=== PATIENT | male | born 1970 | race Two or more races ===

== ENCOUNTER → 2016-10-19 | Outpatient (REF) | payer BC ==
[~2016-10-19] MED LIST: AMLO10TA2 PO; CALC1CAP31 PO; CARV6.25 PO; FEBU40TA PO; LOSA100T5 PO; OMEP40CA2 PO; SIMV10TA2 PO; VITA200016 PO
== END ==
LOC: M LAB REF 14:32
PROVIDERS: ATTEND Internal Medicine Nephrology
DX: N18.4 Chronic kidney disease, stage 4 (severe) (principal)

== ENCOUNTER → 2016-11-24 | Outpatient (CLI) | payer BC ==
--- NOTE | 2016-11-24 20:22 | ECGEPIP ---
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
== END ==
LOC: M EKG 10:43
PROVIDERS: ATTEND Anesthesiology
DX: I12.9 Hypertensive chronic kidney disease with stage 1 through stage 4 chronic kidney disease, or unspecified chronic kidney disease (principal); N18.4 Chronic kidney disease, stage 4 (severe); E78.00 Pure hypercholesterolemia, unspecified

== ENCOUNTER 2016-11-26 07:29 | Day surgery (SDC) | payer BC ==
[~2016-11-26] VITALS: Ht 188 cm; Wt 136.1 kg
[2016-11-26] MEDS ORDERED: LR 500 ML IV ONE (08:00)
[2016-11-26] MEDS ORDERED: LIDOCAINE 1% SDV INJ 30 ML VIAL As Ordered ONE (08:34)
[2016-11-26] MEDS ORDERED: HEPARIN SOD (PORCINE) 5000 UNITS/ML VIAL As Ordered ONE (08:34)
[2016-11-26] MEDS ORDERED: BUPIVACAINE HCL 0.5% 30 ML VIAL As Ordered ONE (08:34)
[2016-11-26] MEDS ORDERED: PROPOFOL 200 MG/20 ML VIAL As Ordered ONE ×2 (09:09→09:28)
[2016-11-26] MEDS ORDERED: MIDAZOLAM INJ 2 MG/2 ML VIAL (J2250) As Ordered ONE (09:09)
[2016-11-26] MEDS ORDERED: fentaNYL 100 MCG/2 ML INJECTION (J3010) As Ordered ONE (09:09)
[2016-11-26] MEDS ORDERED: LIDOCAINE 2% INJ 100 MG/5 ML SDV (FOR ANES.) As Ordered ONE (09:09)
--- NOTE | 2016-11-26 10:46 | ROOPDOC ---
[facility] Report Of Operation Report of Operation DATE OF PROCEDURE: 11/26/16 PREOPERATIVE DIAGNOSES: Chronic renal insufficiency nearing end-stage renal disease. POSTOPERATIVE DIAGNOSES: Chronic renal insufficiency nearing end-stage renal disease. PROCEDURE: Left radiocephalic arteriovenous fistula creation. SURGEON: Dr. Latosha Chris MD FIELD LABORATORY OPERATOR: None INDICATION: Patient is a 46-year-old male with chronic renal insufficiency nearing end-stage renal disease who will require hemodialysis in the future. Patient was evaluated and felt to be a good candidate for a left radiocephalic possible left brachiocephalic arteriovenous fistula creation..Risks, benefits and alternative treatment options were discussed with the patient. Benefits included but were not limited to having a functioning arteriovenous fistula to time of initiation of hemodialysis decreasing the possibility of the need for a central venous tunneled catheter for dialysis access. Alternative treatment options included but were not limited to no intervention with continued conservative management. Risks included but were not limited to infection, bleeding, failure of arteriovenous to maintain patency with thrombosis, failure of arteriovenous fistula to mature requiring secondary intervention, steal syndrome, worsening of renal failure requiring hemodialysis sooner than expected, possible need for further open surgical intervention, cerebrovascular accident, myocardial infarction, pulmonary embolus , DVT, anesthetic complication, loss of limb, loss of life and poor outcome. Patient's questions were answered. Patient voices understanding of the risks, benefits and alternative treatment options. Patient consents to proceed with arterial venous fistula formation and accepts the associated risks. ANESTHESIA: Local monitored anesthesia care with 10 mL of 1% lidocaine mixed with half percent Marcaine. IVF: 500 mL ESTIMATED BLOOD LOSS:Approximately 30 mL. HEPARIN:None PROTAMINE:None COMPLICATIONS:None DRAINS:None SPECIMENS:None IMPLANTS:None FINDINGS: Patient had non-diseased radial artery and cephalic vein at the wrist with the cephalic vein measuring approximately 3 mm. DESCRIPTION OF PROCEDURE: Patient was taken to operating room, placed supine on the operating room table, and the patient was prepped and draped in a standard surgical fashion. A time-out was then conducted by myself and the team members in the room confirming the correct patient, procedure and laterality. A tourniquet was then applied to the left forearm to dilate the cephalic vein along the course of the forearm. 2 incisions were then made 1 over the cephalic vein at the wrist and 1 over the radial artery after the overlying tissue were anesthetized with 1% lidocaine mixed with half percent Marcaine. The radial artery were sharply dissected proximally and distally and encircled with a vessel loop. The cephalic vein was sharply dissected proximally and distally encircled with a vessel loop and then transected as far distal as possible with the remnant ligated with a 2-0 silk suture. The cephalic vein was then dilated using heparinized saline. The cephalic vein was brought through a tunnel between the 2 incisions and then anastomosed to the radial artery in an end to side fashion using 6-0 Prolene suture. There was good flow noted in the fistula at the completion of the anastomosis using Doppler ultrasound. Hemostasis was obtained after which the 2 incisions were closed using 3-0 Monocryl in a running subcuticular fashion. Steri-Strips and dressings were applied. Patient tolerated the procedure well. All instrument, sponge and needle counts were correct at the end of the case. Dr. Chris was present for and directed the entire case. Patient was transferred to the recovery room awake, alert and in stable condition. Jarrod Chris MD Nov 26, 2016 10:46
[2016-11-26 11:00] VITALS: BP 136/99
== END 2016-11-26 11:01 | disposition home or self-care (01) ==
LOC: M SDC 07:29
PROVIDERS: ATTEND Surgery Vascular Surgery
DX: N18.9 Chronic kidney disease, unspecified (principal)
CPT/HCPCS: 36821; J2250; J3010

== ENCOUNTER → 2016-12-11 | Outpatient (CLI) | payer OTHER ==
--- NOTE | 2016-12-11 09:35 | REP ---
CT ABDOMEN/PELVIS WITHOUT IV CONTRAST: CT abdomen/pelvis performed without oral or IV contrast. Sagittal and coronal reconstruction images are performed. Comparison made with prior study of 12/27/2015. In the visualized lung bases, there is focal pleural thickening or consolidative opacity in the posterior costophrenic sulcus on the left. This has increased since prior study. The liver, spleen, adrenals, and pancreas are grossly unremarkable. Kidneys are both enlarged and demonstrate multiple innumerable diffuse cystic lesions throughout compatible with polycystic kidney disease. Some of these cystic lesions are hyperdense. A few tiny calcifications are seen bilaterally in the kidneys. There is no abdominal aortic aneurysm. There is no adenopathy. There is no free air or free fluid. There is no bowel wall thickening. There is mild sigmoid diverticulosis without acute diverticulitis. Urinary bladder is not well distended and not well evaluated. No pelvic mass is seen. There are mild degenerative changes of the spine. IMPRESSION: Focal pleural thickening or consolidation in the left posterior costophrenic sulcus. This has increased since prior study. Recommend a CT of the chest to evaluate for other parenchymal abnormalities. Polycystic kidney disease as discussed above. Signed by Salbador Wallace MD 12/14/2016 09:45 A
== END ==
LOC: M RAD 07:23
PROVIDERS: ATTEND Transplant Surgery
DX: Z01.818 Encounter for other preprocedural examination (principal)

== ENCOUNTER → 2017-01-27 | Outpatient (REF) | payer BC | LOC: M LAB REF 13:53 | PROVIDERS: ATTEND Internal Medicine Nephrology | DX: N18.5 Chronic kidney disease, stage 5 (principal) ==

== ENCOUNTER → 2017-04-05 | Outpatient (REF) | payer BC ==
[2017-04-07 10:56] LABS: HEPATITIS B SURFACE ANTIGEN NEGATIVE (NEGATIVE)
[2017-04-07 11:01] LABS: HEPATITIS C VIRUS ABY INDEX 0.1 INDEX (<0.8)
[2017-04-07 11:02] LABS: HEPATITIS B CORE ANTIBODY IGM NEGATIVE (NEGATIVE)
[2017-04-07 11:11] LABS: HEPATITIS B SURFACE ANTIBODY NEGATIVE (POSITIVE)
== END ==
LOC: M LAB REF 18:43
DX: N18.6 End stage renal disease (principal)
CPT/HCPCS: 86706

== ENCOUNTER → 2017-06-04 | Outpatient (REF) | payer BC ==
[2017-06-04 14:02] LABS: CHOLESTEROL LEVEL 186 MG/DL (<200); CHOLESTEROL RISK RATIO 6.642 (<5); HDL CHOLESTEROL 28 MG/DL (>40); LDL CHOLESTEROL 92.2 MG/DL (<100); NON-HDL-C 158 MG/DL; TRIGLYCERIDES LEVEL 329 MG/DL (<150)
[2017-06-04 14:15] LABS: HEPATITIS B SURFACE ANTIBODY NEGATIVE (POSITIVE)
[2017-06-04 14:22] LABS: HEPATITIS B SURFACE ANTIGEN NEGATIVE (NEGATIVE)
[2017-06-04 14:48] LABS: HEPATITIS B CORE ANTIBODY IGM NEGATIVE (NEGATIVE); HEPATITIS C VIRUS ABY INDEX < 0.0 INDEX (<0.8)
== END ==
LOC: M LAB REF 13:18
DX: N18.5 Chronic kidney disease, stage 5 (principal)
CPT/HCPCS: 86706

== ENCOUNTER 2017-06-25 09:31 | Day surgery (SDC) | payer BC ==
[2017-06-25] MEDS ORDERED: LIDOCAINE 1% MDV 20ML VIAL SQ (09:45)
[2017-06-25] MEDS ORDERED: LR 1,000 ML IV (09:45)
[2017-06-25 10:07] LABS: POTASSIUM SERUM 4.6 MEQ/L (3.5-5.1)
[2017-06-25] MEDS ORDERED: ROCURONIUM BROMIDE 50 MG/5 ML VIAL As Ordered (10:07)
[2017-06-25] MEDS ORDERED: PROPOFOL 200 MG/20 ML VIAL As Ordered (10:07)
[2017-06-25] MEDS ORDERED: LIDOCAINE 2% W/EPIN INJ 20ML **PRES FREE As Ordered (10:07)
[2017-06-25] MEDS ORDERED: MIDAZOLAM INJ 2 MG/2 ML VIAL (J2250) As Ordered (10:07)
[2017-06-25] MEDS ORDERED: fentaNYL 100 MCG/2 ML INJECTION (J3010) As Ordered ×2 (10:07→11:24)
[2017-06-25] MEDS ORDERED: dexameTHASONE 4 MG/ML 1ML VIAL (J1100) As Ordered (10:53)
[2017-06-25] MEDS ORDERED: ONDANSETRON 4MG/2ML VIAL (J2405) As Ordered (10:53)
[2017-06-25] MEDS ORDERED: NEOSTIGMINE 10 MG/10 ML VIAL (J2710) As Ordered (11:06)
[2017-06-25] MEDS ORDERED: GLYCOPYRROLATE INJ 0.2 MG/ML 2 ML VIAL As Ordered (11:06)
[2017-06-25] MEDS: LIDOCAINE 1% SDV INJ 30 ML VIAL As Ordered (11:16)
[2017-06-25] MEDS: BUPIVACAINE HCL 0.5% 30 ML VIAL As Ordered (11:16)
[2017-06-25] MEDS ORDERED: LABETALOL HCL 100 MG/20 ML VIAL As Ordered (11:18)
[2017-06-25] MEDS ORDERED: ONDANSETRON 4MG/2ML VIAL (J2405) IV (12:00)
[2017-06-25] MEDS ORDERED: NS 1,000 ML IV (12:00)
[2017-06-25] MEDS ORDERED: METOCLOPRAMIDE INJ 10MG/2ML VIAL (J2765) IV (12:00)
[2017-06-25] MEDS ORDERED: fentaNYL 100 MCG/2 ML INJECTION (J3010) IV (12:00)
[2017-06-25] MEDS: PERCOCET 5MG/325MG TAB PO (12:16)
== END 2017-06-25 14:28 | disposition home or self-care (01) ==
LOC: M SDC 09:31
DX: N18.9 Chronic kidney disease, unspecified (principal); Q61.3 Polycystic kidney, unspecified; K66.0 Peritoneal adhesions (postprocedural) (postinfection); Z98.890 Other specified postprocedural states; I12.9 Hypertensive chronic kidney disease with stage 1 through stage 4 chronic kidney disease, or unspecified chronic kidney disease; E78.5 Hyperlipidemia, unspecified; M10.9 Gout, unspecified; Z79.899 Other long term (current) drug therapy
CPT/HCPCS: 49324

== ENCOUNTER 2017-06-26 09:00 | Inpatient (IN) | payer BC ==
[2017-06-26 10:14] LABS: BASO % 0.1 % (0.0-1.0); HEMATOCRIT 32.6 % (42.0-52.0); HEMOGLOBIN 10.7 g/dl (13.5-17.5); IMMATURE GRANULOCYTE % 0.6 % (0-3.0); LYMPH # 0.8 10^3/uL (1.5-4.5); LYMPH % 4.6 % (24.0-44.0); MEAN CORPUSCULAR HEMOGLOBIN 27.6 pg (27.0-33.0); MEAN CORPUSCULAR HGB CONC 32.8 g/dl (32.0-36.5); MONO # 1.1 10^3/uL (0.0-0.8); MONO % 6.1 % (0.0-5.0); NEUTROPHILS # 15.5 10^3/uL (1.8-7.7); NEUTROPHILS % 88.6 % (36.0-66.0); PLATELET COUNT, AUTOMATED 249 10^3/uL (150-450); RED BLOOD COUNT 3.88 10^6/uL (4.30-6.10); RED CELL DISTRIBUTION WIDTH 12.7 % (11.5-14.5); WHITE BLOOD COUNT 17.5 10^3/uL (4.0-10.0)
[2017-06-26 10:42] LABS: ALBUMIN 3.7 GM/DL (3.2-5.2); ALBUMIN/GLOBULIN RATIO 1.09 (1.00-1.93); ALKALINE PHOSPHATASE 42 U/L (45-117); ALT/SGPT 18 U/L (12-78); ANION GAP 10 MEQ/L (8-16); AST/SGOT 6 U/L (7-37); BILIRUBIN,TOTAL 0.2 MG/DL (0.2-1.0); BLOOD UREA NITROGEN 59 MG/DL (7-18); CALCIUM LEVEL 8.7 MG/DL (8.5-10.1); CARBON DIOXIDE LEVEL 21 MEQ/L (21-32); CHLORIDE LEVEL 109 MEQ/L (98-107); CREATININE FOR GFR 5.03 MG/DL (0.70-1.30); GLOMERULAR FILTRATION RATE 13.3 (>60); GLUCOSE, FASTING 127 MG/DL (70-100); POTASSIUM SERUM 4.5 MEQ/L (3.5-5.1); SODIUM LEVEL 140 MEQ/L (136-145); TOTAL PROTEIN 7.1 GM/DL (6.4-8.2)
[2017-06-26 10:52] LABS: KETONE, URINE AUTO RFX NEGATIVE (NEGATIVE); LEUKOCYTE ESTERASE UR AUTO RFX NEGATIVE (NEGATIVE); MUCUS, URINE RFX SMALL (NEGATIVE); NITRITE, URINE AUTO RFX NEGATIVE (NEGATIVE); RBC, URINE AUTO RFX 1 /HPF (0-3); SQUAM EPITHELIAL CELL UR AURFX 0 /HPF (0-6); WBC, URINE AUTO RFX 0 /HPF (0-3)
[2017-06-26] MEDS: VANCOMYCIN HCL 1,000 MG, VIAL MATE ADAPTER 1 EACH in D5W 250 ML IV (12:04)
[2017-06-26] MEDS: PIPERACILLIN/TAZOBACTAM SOD 2.25 GM in D5W MINI-BAG PLUS 50 ML IV (13:02)
[2017-06-26] MEDS ORDERED: ONDANSETRON 4MG/2ML VIAL (J2405) IV (14:15)
[2017-06-26] MEDS ORDERED: ACETAMINOPHEN TAB 650MG DOSE (2X325MG) PO (14:15)
[2017-06-26] MEDS: CEFEPIME HCL 1 GM in D5W MINI-BAG PLUS 50 ML IV (17:50)
[2017-06-26 18:23] LABS: HEMATOCRIT 28.1 % (42.0-52.0); HEMOGLOBIN 9.1 g/dl (13.5-17.5)
[2017-06-26] MEDS: CARVedilol 6.25 MG TAB PO (20:59)
[2017-06-26] MEDS: TAMSULOSIN 0.4 MG CAP PO (20:59)
[2017-06-26] MEDS: SENOKOT S TAB PO (20:59)
[2017-06-26] MEDS: SIMVASTATIN 10 MG TAB PO (20:59)
[2017-06-27 06:08] LABS: HEMATOCRIT 27.9 % (42.0-52.0); HEMOGLOBIN 9.3 g/dl (13.5-17.5); MEAN CORPUSCULAR HGB CONC 33.3 g/dl (32.0-36.5); PLATELET COUNT, AUTOMATED 196 10^3/uL (150-450); RED BLOOD COUNT 3.32 10^6/uL (4.30-6.10); RED CELL DISTRIBUTION WIDTH 13.1 % (11.5-14.5)
[2017-06-27 06:24] LABS: ALBUMIN 3.2 GM/DL (3.2-5.2); ANION GAP 9 MEQ/L (8-16); BLOOD UREA NITROGEN 61 MG/DL (7-18); CALCIUM LEVEL 8.5 MG/DL (8.5-10.1); CARBON DIOXIDE LEVEL 19 MEQ/L (21-32); CHLORIDE LEVEL 111 MEQ/L (98-107); CREATININE FOR GFR 4.74 MG/DL (0.70-1.30); GLOMERULAR FILTRATION RATE 14.2 (>60); GLUCOSE, FASTING 92 MG/DL (70-100); MAGNESIUM LEVEL 1.9 MG/DL (1.8-2.4); PHOSPHORUS LEVEL 4.4 MG/DL (2.5-4.9); POTASSIUM SERUM 4.1 MEQ/L (3.5-5.1); SODIUM LEVEL 139 MEQ/L (136-145); VANCOMYCIN RANDOM 8.9 UG/ML
[2017-06-27] MEDS: FUROSEMIDE 40 MG TAB PO (08:40)
[2017-06-27] MEDS: CALCITRIOL 0.25 MCG CAP (S0169) PO (08:40)
[2017-06-27] MEDS: OMEPRAZOLE 20 MG CAP PO (08:40)
[2017-06-27] MEDS: VITAMIN D 1,000 INTERNATIONAL UNITS TABLET PO (08:41)
[2017-06-27] MEDS: amLODIPine 10 MG TAB PO (08:41)
[2017-06-27] MEDS: CARVedilol 6.25 MG TAB PO ×2 (08:41→21:33)
[2017-06-27] MEDS: SENOKOT S TAB PO ×2 (08:41→21:32)
[2017-06-27] MEDS: LOSARTAN 50 MG TAB PO (08:42)
[2017-06-27] MEDS ORDERED: LOSARTAN 50 MG TAB PO (09:00)
[2017-06-27] MEDS: VANCOMYCIN HCL 1,000 MG, VIAL MATE ADAPTER 1 EACH in D5W 250 ML IV (10:20)
[2017-06-27] MEDS: FEBUXOSTAT 40 MG TABLET (ULORIC) PO (12:17)
[2017-06-27] MEDS: SODIUM BICARBONATE 325 MG TAB PO ×2 (12:17→21:32)
[2017-06-27 12:41] LABS: FERRITIN 154 NG/ML (26-388); IRON (FE) 56 UG/DL (65-175); TOTAL IRON BINDING CAPACITY 243 UG/DL (250-450)
[2017-06-27] MEDS: CEFEPIME HCL 1 GM in D5W MINI-BAG PLUS 50 ML IV (16:54)
[2017-06-27] MEDS: DARBEPOETIN 40 MCG/0.4 ML *NON-DIALYSIS* SYRINGE (J0881) SQ (16:54)
[2017-06-27] MEDS: SIMVASTATIN 10 MG TAB PO (21:32)
[2017-06-27] MEDS: TAMSULOSIN 0.4 MG CAP PO (21:32)
[2017-06-28 05:53] LABS: HEMATOCRIT 30.4 % (42.0-52.0); HEMOGLOBIN 9.9 g/dl (13.5-17.5); MEAN CORPUSCULAR HEMOGLOBIN 27.3 pg (27.0-33.0); MEAN CORPUSCULAR HGB CONC 32.6 g/dl (32.0-36.5); PLATELET COUNT, AUTOMATED 198 10^3/uL (150-450); RED BLOOD COUNT 3.62 10^6/uL (4.30-6.10); RED CELL DISTRIBUTION WIDTH 13.1 % (11.5-14.5); WHITE BLOOD COUNT 8.4 10^3/uL (4.0-10.0)
[2017-06-28 06:09] LABS: ESTIMATED AVERAGE GLUCOSE 114 MG/DL (60-110); HEMOGLOBIN A1c 5.6 %
[2017-06-28 06:54] LABS: ALBUMIN 3.4 GM/DL (3.2-5.2); ANION GAP 11 MEQ/L (8-16); BLOOD UREA NITROGEN 60 MG/DL (7-18); CALCIUM LEVEL 8.7 MG/DL (8.5-10.1); CARBON DIOXIDE LEVEL 19 MEQ/L (21-32); CHLORIDE LEVEL 111 MEQ/L (98-107); CHOLESTEROL LEVEL 153 MG/DL (<200); CHOLESTEROL RISK RATIO 4.636 (<5); CREATININE FOR GFR 4.92 MG/DL (0.70-1.30); GLOMERULAR FILTRATION RATE 13.6 (>60); GLUCOSE, FASTING 106 MG/DL (70-100); HDL CHOLESTEROL 33 MG/DL (>40); LDL CHOLESTEROL 76.6 MG/DL (<100); MAGNESIUM LEVEL 1.9 MG/DL (1.8-2.4); NON-HDL-C 120 MG/DL; SODIUM LEVEL 141 MEQ/L (136-145); TRIGLYCERIDES LEVEL 217 MG/DL (<150); VANCOMYCIN RANDOM 14.3 UG/ML
[2017-06-28] MEDS: SENOKOT S TAB PO (09:16)
[2017-06-28] MEDS: OMEPRAZOLE 20 MG CAP PO (09:16)
[2017-06-28] MEDS: FEBUXOSTAT 40 MG TABLET (ULORIC) PO (09:16)
[2017-06-28] MEDS: CALCITRIOL 0.25 MCG CAP (S0169) PO (09:16)
[2017-06-28] MEDS: VITAMIN D 1,000 INTERNATIONAL UNITS TABLET PO (09:17)
[2017-06-28] MEDS: CARVedilol 6.25 MG TAB PO (09:17)
[2017-06-28] MEDS: SODIUM BICARBONATE 325 MG TAB PO (09:17)
[2017-06-28] MEDS: amLODIPine 10 MG TAB PO (09:17)
[2017-06-28] MEDS: FUROSEMIDE 40 MG TAB PO (09:17)
[2017-06-28] MEDS: LOSARTAN 50 MG TAB PO (09:17)
[2017-06-28] MEDS: VANCOMYCIN HCL 1,000 MG, VIAL MATE ADAPTER 1 EACH in D5W 250 ML IV (10:32)
[2017-06-28 10:35] LABS: HEPATITIS B SURFACE ANTIBODY NEGATIVE (POSITIVE)
[2017-06-28 10:36] LABS: HEPATITIS B SURFACE ANTIGEN NEGATIVE (NEGATIVE)
[2017-06-28 11:03] LABS: HEPATITIS B CORE ANTIBODY IGM NEGATIVE (NEGATIVE)
[2017-06-29 08:11] LABS: HEPATITIS B CORE ANTIBODY IGG Negative (Negative)
== END 2017-06-28 11:40 | disposition home or self-care (01) | DRG 862 ==
LOC: M ED 09:00 → M ED INP 14:12 → M MSPAV 15:22
DX: T85.838A Hemorrhage due to other internal prosthetic devices, implants and grafts, initial encounter (principal); K66.1 Hemoperitoneum; I12.0 Hypertensive chronic kidney disease with stage 5 chronic kidney disease or end stage renal disease; Q61.3 Polycystic kidney, unspecified; N18.5 Chronic kidney disease, stage 5; T82.868A Thrombosis due to vascular prosthetic devices, implants and grafts, initial encounter; E66.01 Morbid (severe) obesity due to excess calories; N25.81 Secondary hyperparathyroidism of renal origin; Z68.41 Body mass index [BMI] 40.0-44.9, adult; R33.9 Retention of urine, unspecified; E78.5 Hyperlipidemia, unspecified; M1A.30X0 Chronic gout due to renal impairment, unspecified site, without tophus (tophi); Z95.828 Presence of other vascular implants and grafts; Z79.899 Other long term (current) drug therapy; Y82.9 Unspecified medical devices associated with adverse incidents

== ENCOUNTER 2017-07-05 06:26 | Inpatient (IN) | payer BC ==
[2017-07-05] MEDS ORDERED: fentaNYL 100 MCG/2 ML INJECTION (J3010) As Ordered (06:42)
[2017-07-05] MEDS ORDERED: ISOVUE-300 61% 50ML VIAL (Q9967) As Ordered (06:43)
[2017-07-05] MEDS ORDERED: MIDAZOLAM INJ 2 MG/2 ML VIAL (J2250) As Ordered (06:43)
[2017-07-05 14:39] LABS: BASO % 0.4 % (0.0-1.0); EOS # 0.3 10^3/uL (0.0-0.50); HEMATOCRIT 31.7 % (42.0-52.0); HEMOGLOBIN 10.4 g/dl (13.5-17.5); IMMATURE GRANULOCYTE % 1.1 % (0-3.0); LYMPH # 1.2 10^3/uL (1.5-4.5); LYMPH % 12.2 % (24.0-44.0); MEAN CORPUSCULAR HEMOGLOBIN 28.1 pg (27.0-33.0); MEAN CORPUSCULAR HGB CONC 32.8 g/dl (32.0-36.5); MEAN CORPUSCULAR VOLUME 85.7 fl (80.0-96.0); MONO % 9.3 % (0.0-5.0); NEUTROPHILS # 7.5 10^3/uL (1.8-7.7); PLATELET COUNT, AUTOMATED 265 10^3/uL (150-450); RED CELL DISTRIBUTION WIDTH 13.2 % (11.5-14.5); WHITE BLOOD COUNT 10.2 10^3/uL (4.0-10.0)
[2017-07-05 15:03] LABS: ALBUMIN 3.5 GM/DL (3.2-5.2); ALBUMIN/GLOBULIN RATIO 1.17 (1.00-1.93); ALKALINE PHOSPHATASE 52 U/L (45-117); ALT/SGPT 24 U/L (12-78); ANION GAP 10 MEQ/L (8-16); AST/SGOT 15 U/L (7-37); BILIRUBIN,TOTAL 0.5 MG/DL (0.2-1.0); BLOOD UREA NITROGEN 65 MG/DL (7-18); CALCIUM LEVEL 8.4 MG/DL (8.5-10.1); CARBON DIOXIDE LEVEL 20 MEQ/L (21-32); CHLORIDE LEVEL 112 MEQ/L (98-107); CREATININE FOR GFR 4.86 MG/DL (0.70-1.30); GLOMERULAR FILTRATION RATE 13.8 (>60); GLUCOSE, FASTING 106 MG/DL (70-100); POTASSIUM SERUM 4.2 MEQ/L (3.5-5.1); SODIUM LEVEL 142 MEQ/L (136-145); TOTAL PROTEIN 6.5 GM/DL (6.4-8.2)
[2017-07-05 16:03] LABS: INR 1.04; PROTHROMBIN TIME 13.8 SECONDS (12.4-14.5)
[2017-07-05 16:04] LABS: PARTIAL THROMBOPLASTIN TIME 25.4 SECONDS (26.8-37.9)
[2017-07-05] MEDS: HEPARIN SOD (PORCINE) 5000 UNITS/ML VIAL IV ×2 (16:25→23:14)
[2017-07-05] MEDS: HEPARIN DRIP 25,000 UNITS in APPROPRIATE DILUENT 1 EA IV (16:26)
[2017-07-05 19:33] LABS: PARTIAL THROMBOPLASTIN TIME 58.1 SECONDS (26.8-37.9)
[2017-07-05] MEDS: CARVedilol 3.125 MG TAB PO (22:14)
[2017-07-05] MEDS: SIMVASTATIN 10 MG TAB PO (22:14)
[2017-07-05 22:43] LABS: INR 1.01; PROTHROMBIN TIME 13.4 SECONDS (12.4-14.5)
[2017-07-05 22:44] LABS: PARTIAL THROMBOPLASTIN TIME 44.5 SECONDS (26.8-37.9)
[2017-07-06 06:18] LABS: PARTIAL THROMBOPLASTIN TIME 105.9 SECONDS (26.8-37.9)
[2017-07-06] MEDS: HEPARIN DRIP 25,000 UNITS in APPROPRIATE DILUENT 1 EA IV ×2 (06:40→21:03)
[2017-07-06] MEDS: FEBUXOSTAT 40 MG TABLET (ULORIC) PO (08:49)
[2017-07-06] MEDS: CALCITRIOL 0.25 MCG CAP (S0169) PO (08:49)
[2017-07-06] MEDS: OMEPRAZOLE 20 MG CAP PO (08:49)
[2017-07-06] MEDS: CARVedilol 3.125 MG TAB PO ×2 (08:50→20:10)
[2017-07-06 13:14] LABS: PARTIAL THROMBOPLASTIN TIME 58.6 SECONDS (26.8-37.9)
[2017-07-06] MEDS: HEPARIN SOD (PORCINE) 5000 UNITS/ML VIAL IV (14:37)
[2017-07-06] MEDS: ALTEPLASE RECOMBINANT 25 MG in NS 225 ML IV (17:02)
[2017-07-06] MEDS: SODIUM CHLORIDE 0.9% INJ 10 ML SYR IV (18:00)
[2017-07-06] MEDS: SIMVASTATIN 10 MG TAB PO (20:09)
[2017-07-06 23:41] LABS: HEMATOCRIT 28.9 % (42.0-52.0); HEMOGLOBIN 9.5 g/dl (13.5-17.5)
[2017-07-06 23:52] LABS: FIBRINOGEN 576 MG/DL (221-452); INR 1.02; PROTHROMBIN TIME 13.5 SECONDS (12.4-14.5)
[2017-07-07 00:15] LABS: PARTIAL THROMBOPLASTIN TIME 86.4 SECONDS (26.8-37.9)
[2017-07-07] MEDS: SODIUM CHLORIDE 0.9% INJ 10 ML SYR IV ×2 (05:53→18:13)
[2017-07-07 06:12] LABS: HEMATOCRIT 29.5 % (42.0-52.0); MEAN CORPUSCULAR HEMOGLOBIN 28.4 pg (27.0-33.0); MEAN CORPUSCULAR HGB CONC 33.9 g/dl (32.0-36.5); MEAN CORPUSCULAR VOLUME 83.8 fl (80.0-96.0); PLATELET COUNT, AUTOMATED 317 10^3/uL (150-450); RED BLOOD COUNT 3.52 10^6/uL (4.30-6.10); RED CELL DISTRIBUTION WIDTH 12.9 % (11.5-14.5); WHITE BLOOD COUNT 9.5 10^3/uL (4.0-10.0)
[2017-07-07 06:25] LABS: PROTHROMBIN TIME 13.3 SECONDS (12.4-14.5)
[2017-07-07 06:26] LABS: FIBRINOGEN 582 MG/DL (221-452); PARTIAL THROMBOPLASTIN TIME 43.7 SECONDS (26.8-37.9)
[2017-07-07] MEDS: HEPARIN DRIP 25,000 UNITS in APPROPRIATE DILUENT 1 EA IV ×2 (06:31→18:13)
[2017-07-07 06:47] LABS: ALBUMIN 3.3 GM/DL (3.2-5.2); ANION GAP 11 MEQ/L (8-16); BLOOD UREA NITROGEN 64 MG/DL (7-18); CALCIUM LEVEL 8.5 MG/DL (8.5-10.1); CARBON DIOXIDE LEVEL 18 MEQ/L (21-32); CHLORIDE LEVEL 112 MEQ/L (98-107); CREATININE FOR GFR 4.71 MG/DL (0.70-1.30); GLOMERULAR FILTRATION RATE 14.3 (>60); GLUCOSE, FASTING 101 MG/DL (70-100); POTASSIUM SERUM 4.5 MEQ/L (3.5-5.1); SODIUM LEVEL 141 MEQ/L (136-145)
[2017-07-07] MEDS: OMEPRAZOLE 20 MG CAP PO (09:00)
[2017-07-07] MEDS: CALCITRIOL 0.25 MCG CAP (S0169) PO (09:00)
[2017-07-07] MEDS: FEBUXOSTAT 40 MG TABLET (ULORIC) PO (09:00)
[2017-07-07] MEDS: CARVedilol 3.125 MG TAB PO ×2 (09:10→20:17)
[2017-07-07 12:21] LABS: HEMATOCRIT 30.6 % (42.0-52.0); HEMOGLOBIN 9.9 g/dl (13.5-17.5)
[2017-07-07] MEDS: VANCOMYCIN HCL 1,000 MG, VIAL MATE ADAPTER 1 EACH in D5W 250 ML IV (12:22)
[2017-07-07 12:33] LABS: INR 0.96; PROTHROMBIN TIME 12.9 SECONDS (12.4-14.5)
[2017-07-07 12:34] LABS: FIBRINOGEN 576 MG/DL (221-452)
[2017-07-07 12:35] LABS: PARTIAL THROMBOPLASTIN TIME 57.5 SECONDS (26.8-37.9)
[2017-07-07] MEDS: ALTEPLASE RECOMBINANT 25 MG in NS 225 ML IV (15:42)
[2017-07-07 18:35] LABS: HEMATOCRIT 29.3 % (42.0-52.0); HEMOGLOBIN 9.7 g/dl (13.5-17.5)
[2017-07-07 18:44] LABS: FIBRINOGEN 576 MG/DL (221-452); INR 1.02; PROTHROMBIN TIME 13.5 SECONDS (12.4-14.5)
[2017-07-07 18:45] LABS: PARTIAL THROMBOPLASTIN TIME 53.1 SECONDS (26.8-37.9)
[2017-07-07] MEDS: SIMVASTATIN 10 MG TAB PO (20:16)
[2017-07-07 23:40] LABS: HEMATOCRIT 28.9 % (42.0-52.0); HEMOGLOBIN 9.5 g/dl (13.5-17.5)
[2017-07-07 23:51] LABS: PARTIAL THROMBOPLASTIN TIME 53.6 SECONDS (26.8-37.9)
[2017-07-07 23:51] LABS: FIBRINOGEN 527 MG/DL (221-452)
[2017-07-08] MEDS: SODIUM CHLORIDE 0.9% INJ 10 ML SYR IV ×2 (05:43→18:00)
[2017-07-08] MEDS: HEPARIN DRIP 25,000 UNITS in APPROPRIATE DILUENT 1 EA IV ×2 (05:43→18:18)
[2017-07-08 05:45] LABS: HEMATOCRIT 29.6 % (42.0-52.0); HEMOGLOBIN 9.7 g/dl (13.5-17.5)
[2017-07-08 06:00] LABS: PARTIAL THROMBOPLASTIN TIME 54.3 SECONDS (26.8-37.9)
[2017-07-08 06:00] LABS: FIBRINOGEN 569 MG/DL (221-452)
[2017-07-08 06:25] LABS: ANION GAP 8 MEQ/L (8-16); BLOOD UREA NITROGEN 58 MG/DL (7-18); CALCIUM LEVEL 8.4 MG/DL (8.5-10.1); CARBON DIOXIDE LEVEL 21 MEQ/L (21-32); CHLORIDE LEVEL 114 MEQ/L (98-107); CREATININE FOR GFR 4.59 MG/DL (0.70-1.30); GLOMERULAR FILTRATION RATE 14.8 (>60); GLUCOSE, FASTING 107 MG/DL (70-100); POTASSIUM SERUM 4.6 MEQ/L (3.5-5.1); SODIUM LEVEL 143 MEQ/L (136-145)
[2017-07-08] MEDS: FEBUXOSTAT 40 MG TABLET (ULORIC) PO (08:47)
[2017-07-08] MEDS: CALCITRIOL 0.25 MCG CAP (S0169) PO (08:47)
[2017-07-08] MEDS: CARVedilol 3.125 MG TAB PO (08:47)
[2017-07-08] MEDS: OMEPRAZOLE 20 MG CAP PO (08:47)
[2017-07-08 12:04] LABS: HEMATOCRIT 29.9 % (42.0-52.0); HEMOGLOBIN 9.9 g/dl (13.5-17.5)
[2017-07-08 12:16] LABS: FIBRINOGEN 550 MG/DL (221-452); INR 0.96; PROTHROMBIN TIME 12.9 SECONDS (12.4-14.5)
[2017-07-08 12:17] LABS: PARTIAL THROMBOPLASTIN TIME 66.7 SECONDS (26.8-37.9)
[2017-07-08] MEDS: amLODIPine 5 MG TAB PO (12:55)
[2017-07-08] MEDS: ALTEPLASE RECOMBINANT 25 MG in NS 225 ML IV (14:38)
[2017-07-08 18:20] LABS: HEMATOCRIT 26.8 % (42.0-52.0); HEMOGLOBIN 8.7 g/dl (13.5-17.5); HEMOGLOBIN 8.8 g/dl (13.5-17.5); MEAN CORPUSCULAR HGB CONC 32.8 g/dl (32.0-36.5); MEAN CORPUSCULAR VOLUME 85.4 fl (80.0-96.0); PLATELET COUNT, AUTOMATED 300 10^3/uL (150-450); RED BLOOD COUNT 3.14 10^6/uL (4.30-6.10); RED CELL DISTRIBUTION WIDTH 12.9 % (11.5-14.5); WHITE BLOOD COUNT 16.2 10^3/uL (4.0-10.0)
[2017-07-08 18:24] LABS: PARTIAL THROMBOPLASTIN TIME 38.8 SECONDS (26.8-37.9)
[2017-07-08 18:24] LABS: FIBRINOGEN 550 MG/DL (221-452)
[2017-07-08] MEDS: ACETAMINOPHEN TAB 650MG DOSE (2X325MG) PO (21:00)
[2017-07-08] MEDS ORDERED: PILL CRUSHER/CUTTER 1 EACH XX (21:00)
[2017-07-08] MEDS: SIMETHICONE 80 MG CHEW TAB PO (21:00)
[2017-07-08] MEDS: CARVedilol 6.25 MG TAB PO (21:01)
[2017-07-08] MEDS: SIMVASTATIN 10 MG TAB PO (21:01)
[2017-07-08 23:47] LABS: HEMATOCRIT 25.5 % (42.0-52.0); HEMOGLOBIN 8.3 g/dl (13.5-17.5)
[2017-07-09 00:05] LABS: PARTIAL THROMBOPLASTIN TIME 48.5 SECONDS (26.8-37.9)
[2017-07-09 00:05] LABS: FIBRINOGEN 538 MG/DL (221-452)
[2017-07-09] MEDS: ACETAMINOPHEN TAB 650MG DOSE (2X325MG) PO (04:01)
[2017-07-09] MEDS: SODIUM CHLORIDE 0.9% INJ 10 ML SYR IV ×2 (05:55→17:58)
[2017-07-09 06:06] LABS: HEMATOCRIT 22.6 % (42.0-52.0); HEMOGLOBIN 7.5 g/dl (13.5-17.5); MEAN CORPUSCULAR HEMOGLOBIN 28.2 pg (27.0-33.0); MEAN CORPUSCULAR HGB CONC 33.2 g/dl (32.0-36.5); PLATELET COUNT, AUTOMATED 245 10^3/uL (150-450); RED BLOOD COUNT 2.66 10^6/uL (4.30-6.10); WHITE BLOOD COUNT 13.3 10^3/uL (4.0-10.0)
[2017-07-09 06:07] LABS: HEMATOCRIT 22.7 % (42.0-52.0); HEMOGLOBIN 7.3 g/dl (13.5-17.5)
[2017-07-09 06:17] LABS: FIBRINOGEN 459 MG/DL (221-452)
[2017-07-09 06:17] LABS: PARTIAL THROMBOPLASTIN TIME 54.5 SECONDS (26.8-37.9)
[2017-07-09 06:36] LABS: ANION GAP 10 MEQ/L (8-16); BLOOD UREA NITROGEN 63 MG/DL (7-18); CALCIUM LEVEL 8.3 MG/DL (8.5-10.1); CARBON DIOXIDE LEVEL 19 MEQ/L (21-32); CHLORIDE LEVEL 111 MEQ/L (98-107); CREATININE FOR GFR 5.31 MG/DL (0.70-1.30); GLOMERULAR FILTRATION RATE 12.5 (>60); GLUCOSE, FASTING 106 MG/DL (70-100); POTASSIUM SERUM 4.4 MEQ/L (3.5-5.1); SODIUM LEVEL 140 MEQ/L (136-145)
[2017-07-09] MEDS: HEPARIN DRIP 25,000 UNITS in APPROPRIATE DILUENT 1 EA IV ×2 (07:41→18:00)
[2017-07-09] MEDS: CARVedilol 6.25 MG TAB PO ×2 (08:20→21:00)
[2017-07-09] MEDS: OMEPRAZOLE 20 MG CAP PO (08:20)
[2017-07-09] MEDS: FEBUXOSTAT 40 MG TABLET (ULORIC) PO (08:20)
[2017-07-09] MEDS: CALCITRIOL 0.25 MCG CAP (S0169) PO (08:21)
[2017-07-09] MEDS: amLODIPine 5 MG TAB PO (08:21)
[2017-07-09] MEDS ORDERED: MIDAZOLAM INJ 2 MG/2 ML VIAL (J2250) As Ordered (11:34)
[2017-07-09] MEDS ORDERED: ISOVUE-300 61% 50ML VIAL (Q9967) As Ordered (11:34)
[2017-07-09] MEDS ORDERED: fentaNYL 100 MCG/2 ML INJECTION (J3010) As Ordered (11:34)
[2017-07-09 13:13] LABS: HEMOGLOBIN 7.3 g/dl (13.5-17.5)
[2017-07-09 13:24] LABS: FIBRINOGEN 481 MG/DL (221-452)
[2017-07-09 13:41] LABS: PARTIAL THROMBOPLASTIN TIME 172.6 SECONDS (26.8-37.9)
[2017-07-09 14:25] LABS: PARTIAL THROMBOPLASTIN TIME 52.4 SECONDS (26.8-37.9)
[2017-07-09] MEDS: HEPARIN SOD (PORCINE) 5000 UNITS/ML VIAL PD (14:36)
[2017-07-09 18:23] LABS: HEMATOCRIT 22.5 % (42.0-52.0); HEMOGLOBIN 7.4 g/dl (13.5-17.5)
[2017-07-09 18:41] LABS: PARTIAL THROMBOPLASTIN TIME 53.9 SECONDS (26.8-37.9)
[2017-07-09] MEDS: HEPARIN SOD (PORCINE) 5000 UNITS/ML VIAL IV (18:50)
[2017-07-09] MEDS: SIMVASTATIN 10 MG TAB PO (22:00)
[2017-07-10 01:39] LABS: HEMATOCRIT 26.6 % (42.0-52.0); HEMOGLOBIN 8.8 g/dl (13.5-17.5)
[2017-07-10 01:50] LABS: PARTIAL THROMBOPLASTIN TIME 83.5 SECONDS (26.8-37.9)
[2017-07-10] MEDS: SODIUM CHLORIDE 0.9% INJ 10 ML SYR IV ×2 (06:00→18:04)
[2017-07-10 06:52] LABS: HEMATOCRIT 20.3 % (42.0-52.0)
[2017-07-10 07:01] LABS: HEMOGLOBIN 6.7 g/dl (13.5-17.5)
[2017-07-10 07:08] LABS: INR 1.08; PROTHROMBIN TIME 14.2 SECONDS (12.4-14.5)
[2017-07-10 07:10] LABS: PARTIAL THROMBOPLASTIN TIME 56.9 SECONDS (26.8-37.9)
[2017-07-10 07:32] LABS: ANION GAP 11 MEQ/L (8-16); BLOOD UREA NITROGEN 59 MG/DL (7-18); CARBON DIOXIDE LEVEL 20 MEQ/L (21-32); CHLORIDE LEVEL 111 MEQ/L (98-107); CREATININE FOR GFR 5.23 MG/DL (0.70-1.30); GLOMERULAR FILTRATION RATE 12.7 (>60); GLUCOSE, FASTING 104 MG/DL (70-100); POTASSIUM SERUM 3.9 MEQ/L (3.5-5.1); SODIUM LEVEL 142 MEQ/L (136-145)
[2017-07-10] MEDS: FEBUXOSTAT 40 MG TABLET (ULORIC) PO (08:29)
[2017-07-10] MEDS: CALCITRIOL 0.25 MCG CAP (S0169) PO (08:29)
[2017-07-10] MEDS: OMEPRAZOLE 20 MG CAP PO (08:29)
[2017-07-10] MEDS: amLODIPine 5 MG TAB PO (08:29)
[2017-07-10] MEDS: CARVedilol 6.25 MG TAB PO ×2 (08:29→21:24)
[2017-07-10 08:59] LABS: HEMATOCRIT 19.7 % (42.0-52.0)
[2017-07-10 09:03] LABS: HEMOGLOBIN 6.4 g/dl (13.5-17.5)
[2017-07-10 14:49] LABS: IMMEDIATE SPIN CROSSMATCH 1 2
[2017-07-10 18:18] LABS: HEMATOCRIT 24.4 % (42.0-52.0)
[2017-07-10 18:32] LABS: PARTIAL THROMBOPLASTIN TIME 62.5 SECONDS (26.8-37.9)
[2017-07-10] MEDS: HEPARIN DRIP 25,000 UNITS in APPROPRIATE DILUENT 1 EA IV (18:48)
[2017-07-10] MEDS: SIMVASTATIN 10 MG TAB PO (21:24)
[2017-07-11 00:19] LABS: HEMATOCRIT 22.3 % (42.0-52.0); HEMOGLOBIN 7.4 g/dl (13.5-17.5)
[2017-07-11 00:33] LABS: PARTIAL THROMBOPLASTIN TIME 73.4 SECONDS (26.8-37.9)
[2017-07-11] MEDS: SODIUM CHLORIDE 0.9% INJ 10 ML SYR IV ×2 (06:00→18:26)
[2017-07-11 06:27] LABS: HEMATOCRIT 23.8 % (42.0-52.0); HEMOGLOBIN 7.7 g/dl (13.5-17.5)
[2017-07-11 06:37] LABS: PARTIAL THROMBOPLASTIN TIME 71.4 SECONDS (26.8-37.9)
[2017-07-11] MEDS: HEPARIN DRIP 25,000 UNITS in APPROPRIATE DILUENT 1 EA IV ×2 (06:43→19:06)
[2017-07-11 06:54] LABS: ANION GAP 9 MEQ/L (8-16); BLOOD UREA NITROGEN 50 MG/DL (7-18); CALCIUM LEVEL 8.1 MG/DL (8.5-10.1); CARBON DIOXIDE LEVEL 21 MEQ/L (21-32); CHLORIDE LEVEL 117 MEQ/L (98-107); CREATININE FOR GFR 4.69 MG/DL (0.70-1.30); GLOMERULAR FILTRATION RATE 14.4 (>60); GLUCOSE, FASTING 100 MG/DL (70-100); SODIUM LEVEL 147 MEQ/L (136-145)
[2017-07-11] MEDS: FEBUXOSTAT 40 MG TABLET (ULORIC) PO (08:00)
[2017-07-11] MEDS: OMEPRAZOLE 20 MG CAP PO (08:00)
[2017-07-11] MEDS: CALCITRIOL 0.25 MCG CAP (S0169) PO (08:00)
[2017-07-11] MEDS: CARVedilol 6.25 MG TAB PO ×2 (08:03→20:04)
[2017-07-11 12:20] LABS: HEMATOCRIT 26.6 % (42.0-52.0); HEMOGLOBIN 8.6 g/dl (13.5-17.5)
[2017-07-11 12:35] LABS: PARTIAL THROMBOPLASTIN TIME 54.1 SECONDS (26.8-37.9)
[2017-07-11 18:51] LABS: HEMATOCRIT 25.2 % (42.0-52.0); HEMOGLOBIN 8.3 g/dl (13.5-17.5); MEAN CORPUSCULAR HEMOGLOBIN 28.5 pg (27.0-33.0); MEAN CORPUSCULAR HGB CONC 32.9 g/dl (32.0-36.5); MEAN CORPUSCULAR VOLUME 86.6 fl (80.0-96.0); PLATELET COUNT, AUTOMATED 305 10^3/uL (150-450); RED BLOOD COUNT 2.91 10^6/uL (4.30-6.10); RED CELL DISTRIBUTION WIDTH 13.8 % (11.5-14.5); WHITE BLOOD COUNT 7.9 10^3/uL (4.0-10.0)
[2017-07-11 19:06] LABS: PARTIAL THROMBOPLASTIN TIME 47.4 SECONDS (26.8-37.9)
[2017-07-11] MEDS: SIMVASTATIN 10 MG TAB PO (20:04)
[2017-07-11 23:28] LABS: HEMATOCRIT 23.3 % (42.0-52.0); HEMOGLOBIN 7.6 g/dl (13.5-17.5)
[2017-07-11 23:41] LABS: PARTIAL THROMBOPLASTIN TIME 81.9 SECONDS (26.8-37.9)
[2017-07-12] MEDS: HEPARIN DRIP 25,000 UNITS in APPROPRIATE DILUENT 1 EA IV ×2 (04:03→15:17)
[2017-07-12] MEDS: SODIUM CHLORIDE 0.9% INJ 10 ML SYR IV ×2 (05:35→19:45)
[2017-07-12 06:13] LABS: HEMATOCRIT 23.9 % (42.0-52.0); HEMOGLOBIN 7.8 g/dl (13.5-17.5)
[2017-07-12 06:27] LABS: PARTIAL THROMBOPLASTIN TIME 79.7 SECONDS (26.8-37.9)
[2017-07-12 06:50] LABS: ANION GAP 10 MEQ/L (8-16); BLOOD UREA NITROGEN 44 MG/DL (7-18); CALCIUM LEVEL 7.9 MG/DL (8.5-10.1); CARBON DIOXIDE LEVEL 22 MEQ/L (21-32); CHLORIDE LEVEL 114 MEQ/L (98-107); CREATININE FOR GFR 4.68 MG/DL (0.70-1.30); GLOMERULAR FILTRATION RATE 14.4 (>60); GLUCOSE, FASTING 96 MG/DL (70-100); POTASSIUM SERUM 4.1 MEQ/L (3.5-5.1); SODIUM LEVEL 146 MEQ/L (136-145)
[2017-07-12] MEDS: OMEPRAZOLE 20 MG CAP PO (09:37)
[2017-07-12] MEDS: CALCITRIOL 0.25 MCG CAP (S0169) PO (09:37)
[2017-07-12] MEDS: CARVedilol 6.25 MG TAB PO ×2 (09:38→20:22)
[2017-07-12] MEDS: FEBUXOSTAT 40 MG TABLET (ULORIC) PO (09:38)
[2017-07-12 12:57] LABS: HEMATOCRIT 24.5 % (42.0-52.0)
[2017-07-12 13:54] LABS: PARTIAL THROMBOPLASTIN TIME 63.5 SECONDS (26.8-37.9)
[2017-07-12 18:54] LABS: HEMATOCRIT 25.7 % (42.0-52.0); HEMOGLOBIN 8.4 g/dl (13.5-17.5)
[2017-07-12 19:11] LABS: PARTIAL THROMBOPLASTIN TIME 68.3 SECONDS (26.8-37.9)
[2017-07-12] MEDS: SIMVASTATIN 10 MG TAB PO (20:22)
[2017-07-13 00:14] LABS: HEMATOCRIT 24.9 % (42.0-52.0); HEMOGLOBIN 8.1 g/dl (13.5-17.5)
[2017-07-13 01:03] LABS: PARTIAL THROMBOPLASTIN TIME > 120.0 SECONDS (26.8-37.9)
[2017-07-13] MEDS: HEPARIN DRIP 25,000 UNITS in APPROPRIATE DILUENT 1 EA IV ×3 (01:20→21:20)
[2017-07-13 01:46] LABS: PARTIAL THROMBOPLASTIN TIME 84.3 SECONDS (26.8-37.9)
[2017-07-13] MEDS: SODIUM CHLORIDE 0.9% INJ 10 ML SYR IV ×3 (05:42→19:02)
[2017-07-13 06:06] LABS: PARTIAL THROMBOPLASTIN TIME 89.5 SECONDS (26.8-37.9)
[2017-07-13 06:38] LABS: ANION GAP 9 MEQ/L (8-16); BLOOD UREA NITROGEN 46 MG/DL (7-18); CALCIUM LEVEL 8.3 MG/DL (8.5-10.1); CARBON DIOXIDE LEVEL 21 MEQ/L (21-32); CHLORIDE LEVEL 115 MEQ/L (98-107); CREATININE FOR GFR 4.51 MG/DL (0.70-1.30); GLOMERULAR FILTRATION RATE 15.1 (>60); GLUCOSE, FASTING 98 MG/DL (70-100); POTASSIUM SERUM 3.9 MEQ/L (3.5-5.1); SODIUM LEVEL 145 MEQ/L (136-145)
[2017-07-13] MEDS: CALCITRIOL 0.25 MCG CAP (S0169) PO (08:57)
[2017-07-13] MEDS: OMEPRAZOLE 20 MG CAP PO (08:57)
[2017-07-13] MEDS: CARVedilol 6.25 MG TAB PO ×2 (08:57→21:17)
[2017-07-13] MEDS: FEBUXOSTAT 40 MG TABLET (ULORIC) PO (08:57)
[2017-07-13 12:38] LABS: HEMATOCRIT 24.7 % (42.0-52.0); HEMOGLOBIN 8.1 g/dl (13.5-17.5)
[2017-07-13 12:53] LABS: PARTIAL THROMBOPLASTIN TIME 60.9 SECONDS (26.8-37.9)
[2017-07-13] MEDS: HEPARIN SOD (PORCINE) 5000 UNITS/ML VIAL IV (13:22)
[2017-07-13 19:56] LABS: HEMATOCRIT 26.3 % (42.0-52.0); HEMOGLOBIN 8.6 g/dl (13.5-17.5)
[2017-07-13 20:09] LABS: PARTIAL THROMBOPLASTIN TIME 151.3 SECONDS (26.8-37.9)
[2017-07-13] MEDS: SIMVASTATIN 10 MG TAB PO (21:17)
[2017-07-13] MEDS: WARFARIN SOD 5 MG TAB PO (21:17)
[2017-07-14] MEDS: SODIUM CHLORIDE 0.9% INJ 10 ML SYR IV ×3 (02:31→18:00)
[2017-07-14 03:00] LABS: PARTIAL THROMBOPLASTIN TIME 94.7 SECONDS (26.8-37.9)
[2017-07-14 06:04] LABS: HEMATOCRIT 24.6 % (42.0-52.0); HEMOGLOBIN 7.9 g/dl (13.5-17.5); MEAN CORPUSCULAR HEMOGLOBIN 27.8 pg (27.0-33.0); MEAN CORPUSCULAR HGB CONC 32.1 g/dl (32.0-36.5); MEAN CORPUSCULAR VOLUME 86.6 fl (80.0-96.0); PLATELET COUNT, AUTOMATED 292 10^3/uL (150-450); RED BLOOD COUNT 2.84 10^6/uL (4.30-6.10); RED CELL DISTRIBUTION WIDTH 13.5 % (11.5-14.5); WHITE BLOOD COUNT 6.9 10^3/uL (4.0-10.0)
[2017-07-14 06:45] LABS: ANION GAP 9 MEQ/L (8-16); BLOOD UREA NITROGEN 47 MG/DL (7-18); CALCIUM LEVEL 8.4 MG/DL (8.5-10.1); CARBON DIOXIDE LEVEL 22 MEQ/L (21-32); CHLORIDE LEVEL 113 MEQ/L (98-107); CREATININE FOR GFR 4.55 MG/DL (0.70-1.30); FERRITIN 290 NG/ML (26-388); GLOMERULAR FILTRATION RATE 14.9 (>60); GLUCOSE, FASTING 96 MG/DL (70-100); IRON (FE) 34 UG/DL (65-175); PERCENT SATURATION 14.7 % (19.7-50.0); SODIUM LEVEL 144 MEQ/L (136-145); TOTAL IRON BINDING CAPACITY 231 UG/DL (250-450)
[2017-07-14 09:04] LABS: PARTIAL THROMBOPLASTIN TIME 74.1 SECONDS (26.8-37.9)
[2017-07-14] MEDS: CALCITRIOL 0.25 MCG CAP (S0169) PO (09:07)
[2017-07-14] MEDS: OMEPRAZOLE 20 MG CAP PO (09:07)
[2017-07-14] MEDS: CARVedilol 6.25 MG TAB PO ×2 (09:07→20:48)
[2017-07-14] MEDS: HEPARIN DRIP 25,000 UNITS in APPROPRIATE DILUENT 1 EA IV ×2 (10:43→20:42)
[2017-07-14] MEDS: FEBUXOSTAT 40 MG TABLET (ULORIC) PO (13:18)
[2017-07-14] MEDS: SIMVASTATIN 10 MG TAB PO (20:48)
[2017-07-15] MEDS: SODIUM CHLORIDE 0.9% INJ 10 ML SYR IV (05:49)
[2017-07-15] MEDS: HEPARIN DRIP 25,000 UNITS in APPROPRIATE DILUENT 1 EA IV (05:56)
[2017-07-15 06:33] LABS: PARTIAL THROMBOPLASTIN TIME 116.6 SECONDS (26.8-37.9)
[2017-07-15 07:27] LABS: ANION GAP 12 MEQ/L (8-16); BLOOD UREA NITROGEN 48 MG/DL (7-18); CALCIUM LEVEL 8.7 MG/DL (8.5-10.1); CARBON DIOXIDE LEVEL 19 MEQ/L (21-32); CHLORIDE LEVEL 115 MEQ/L (98-107); CREATININE FOR GFR 4.89 MG/DL (0.70-1.30); GLOMERULAR FILTRATION RATE 13.7 (>60); GLUCOSE, FASTING 96 MG/DL (70-100); POTASSIUM SERUM 4.2 MEQ/L (3.5-5.1); SODIUM LEVEL 146 MEQ/L (136-145)
[2017-07-15] MEDS: OMEPRAZOLE 20 MG CAP PO (09:25)
[2017-07-15] MEDS: FEBUXOSTAT 40 MG TABLET (ULORIC) PO (09:26)
[2017-07-15] MEDS: CARVedilol 6.25 MG TAB PO (09:26)
[2017-07-15] MEDS: APIXABAN 5 MG TAB (ELIQUIS) PO (09:26)
[2017-07-15] MEDS: CALCITRIOL 0.25 MCG CAP (S0169) PO (09:26)
[2017-07-15 10:11] LABS: HEMATOCRIT 27.5 % (42.0-52.0); HEMOGLOBIN 8.9 g/dl (13.5-17.5); MEAN CORPUSCULAR HGB CONC 32.4 g/dl (32.0-36.5); MEAN CORPUSCULAR VOLUME 86.5 fl (80.0-96.0); PLATELET COUNT, AUTOMATED 335 10^3/uL (150-450); RED BLOOD COUNT 3.18 10^6/uL (4.30-6.10); RED CELL DISTRIBUTION WIDTH 13.7 % (11.5-14.5); WHITE BLOOD COUNT 7.4 10^3/uL (4.0-10.0)
== END 2017-07-15 13:08 | disposition home or self-care (01) | DRG 197 ==
LOC: M IRPRO 06:26 → M MS4PR 07-13 04:55 → M MSPAV 14:05 → M ICU 07-06 15:12 → M MSPAV 07-13 12:11
PROVIDERS: Orthopaedic Surgery
PROC: 30233N1 Transfusion of Nonautologous Red Blood Cells into Peripheral Vein, Percutaneous Approach (ICD-10-PCS; principal; 2017-07-10)
DX: I82.4Z2 Acute embolism and thrombosis of unspecified deep veins of left distal lower extremity (principal); I26.99 Other pulmonary embolism without acute cor pulmonale; K66.1 Hemoperitoneum; E87.0 Hyperosmolality and hypernatremia; N17.9 Acute kidney failure, unspecified; N18.5 Chronic kidney disease, stage 5; I12.0 Hypertensive chronic kidney disease with stage 5 chronic kidney disease or end stage renal disease; I74.2 Embolism and thrombosis of arteries of the upper extremities; Q61.3 Polycystic kidney, unspecified; E66.01 Morbid (severe) obesity due to excess calories; D62 Acute posthemorrhagic anemia; N25.81 Secondary hyperparathyroidism of renal origin; Z68.41 Body mass index [BMI] 40.0-44.9, adult; I82.612 Acute embolism and thrombosis of superficial veins of left upper extremity; M10.9 Gout, unspecified; E78.00 Pure hypercholesterolemia, unspecified; Z95.828 Presence of other vascular implants and grafts; Z79.899 Other long term (current) drug therapy

== ENCOUNTER 2017-07-17 06:39 | Inpatient (IN) | payer BC ==
[2017-07-17 08:01] LABS: BASO % 0.3 % (0.0-1.0); EOS % 0.2 % (0.0-3.0); HEMATOCRIT 21.4 % (42.0-52.0); IMMATURE GRANULOCYTE % 1.5 % (0-3.0); LYMPH # 0.6 10^3/uL (1.5-4.5); LYMPH % 4.5 % (24.0-44.0); MEAN CORPUSCULAR HGB CONC 32.2 g/dl (32.0-36.5); MONO # 0.8 10^3/uL (0.0-0.8); MONO % 6.9 % (0.0-5.0); NEUTROPHILS # 10.6 10^3/uL (1.8-7.7); NEUTROPHILS % 86.6 % (36.0-66.0); PLATELET COUNT, AUTOMATED 365 10^3/uL (150-450); RED BLOOD COUNT 2.46 10^6/uL (4.30-6.10); RED CELL DISTRIBUTION WIDTH 13.8 % (11.5-14.5); WHITE BLOOD COUNT 12.3 10^3/uL (4.0-10.0)
[2017-07-17 08:12] LABS: HEMOGLOBIN 6.9 g/dl (13.5-17.5)
[2017-07-17 08:23] LABS: ALBUMIN/GLOBULIN RATIO 0.97 (1.00-1.93); ALKALINE PHOSPHATASE 38 U/L (45-117); ALT/SGPT 32 U/L (12-78); ANION GAP 11 MEQ/L (8-16); AST/SGOT 7 U/L (7-37); BILIRUBIN,DIRECT < 0.1 MG/DL (0.0-0.2); BILIRUBIN,TOTAL 0.3 MG/DL (0.2-1.0); BLOOD UREA NITROGEN 57 MG/DL (7-18); CALCIUM LEVEL 8.7 MG/DL (8.5-10.1); CARBON DIOXIDE LEVEL 20 MEQ/L (21-32); CHLORIDE LEVEL 112 MEQ/L (98-107); CREATININE FOR GFR 5.78 MG/DL (0.70-1.30); GLOMERULAR FILTRATION RATE 11.3 (>60); GLUCOSE, FASTING 144 MG/DL (70-100); LIPASE 139 U/L (73-393); POTASSIUM SERUM 4.6 MEQ/L (3.5-5.1); SODIUM LEVEL 143 MEQ/L (136-145); TOTAL PROTEIN 6.1 GM/DL (6.4-8.2)
[2017-07-17 08:36] LABS: INR 1.36; PROTHROMBIN TIME 17.1 SECONDS (12.4-14.5)
[2017-07-17 10:03] LABS: IMMEDIATE SPIN CROSSMATCH 1 2
[2017-07-17 10:10] LABS: C REACTIVE PROTEIN QUANTITATIV 3.89 MG/DL (0.00-0.30)
[2017-07-17 10:27] LABS: ERYTHROCYTE SEDIMENTATION RATE 77 mm/hr (0-15)
[2017-07-17] MEDS ORDERED: CIPROFLOXACIN 400 MG in APPROPRIATE DILUENT 1 EA IV (10:30)
[2017-07-17] MEDS ORDERED: metroNIDAZOLE 500 MG in APPROPRIATE DILUENT 1 EA IV (10:30)
[2017-07-17] MEDS ORDERED: CIPROFLOXACIN 200 MG in APPROPRIATE DILUENT 1 EA IV (11:00)
[2017-07-17] MEDS: NS 1,000 ML IV ×2 (12:00→23:58)
[2017-07-17 14:46] LABS: HEMATOCRIT 25.3 % (42.0-52.0); HEMOGLOBIN 8.3 g/dl (13.5-17.5)
[2017-07-17] MEDS: VANCOMYCIN HCL 1,000 MG, VIAL MATE ADAPTER 1 EACH in D5W 250 ML IV (18:51)
[2017-07-17 20:09] LABS: HEMATOCRIT 26.1 % (42.0-52.0); HEMOGLOBIN 8.7 g/dl (13.5-17.5)
[2017-07-18] MEDS: CEFEPIME HCL 1 GM in D5W MINI-BAG PLUS 50 ML IV ×2 (00:09→17:05)
[2017-07-18 01:09] LABS: HEMATOCRIT 22.8 % (42.0-52.0); HEMOGLOBIN 7.5 g/dl (13.5-17.5)
[2017-07-18] MEDS: HEPARIN SOD (PORCINE) 5000 UNITS/ML VIAL IP (01:45)
[2017-07-18 04:02] LABS: IMMEDIATE SPIN CROSSMATCH 1 1
[2017-07-18 07:52] LABS: HEMATOCRIT 24.6 % (42.0-52.0); HEMOGLOBIN 8.1 g/dl (13.5-17.5); MEAN CORPUSCULAR HEMOGLOBIN 28.6 pg (27.0-33.0); MEAN CORPUSCULAR HGB CONC 32.9 g/dl (32.0-36.5); MEAN CORPUSCULAR VOLUME 86.9 fl (80.0-96.0); RED BLOOD COUNT 2.83 10^6/uL (4.30-6.10); WHITE BLOOD COUNT 7.5 10^3/uL (4.0-10.0)
[2017-07-18 08:14] LABS: ANION GAP 9 MEQ/L (8-16); BLOOD UREA NITROGEN 57 MG/DL (7-18); CALCIUM LEVEL 8.2 MG/DL (8.5-10.1); CARBON DIOXIDE LEVEL 19 MEQ/L (21-32); CHLORIDE LEVEL 115 MEQ/L (98-107); CREATININE FOR GFR 5.49 MG/DL (0.70-1.30); GLUCOSE, FASTING 94 MG/DL (70-100); PLATELET COUNT, AUTOMATED 248 10^3/uL (150-450); SODIUM LEVEL 143 MEQ/L (136-145)
[2017-07-18] MEDS: VANCOMYCIN HCL 1,000 MG, VIAL MATE ADAPTER 1 EACH in D5W 250 ML IV (09:11)
[2017-07-18] MEDS: NS 1,000 ML IV (11:11)
[2017-07-18 12:37] LABS: HEMATOCRIT 25.2 % (42.0-52.0); HEMOGLOBIN 8.4 g/dl (13.5-17.5)
[2017-07-18 13:09] LABS: BEDSIDE GLUCOSE 96 MG/DL (70-105)
[2017-07-18] MEDS: DEXTROSE 50% 50 ML SYRINGE IV ×2 (13:11→13:35)
[2017-07-18] MEDS ORDERED: ROCURONIUM BROMIDE 50 MG/5 ML VIAL As Ordered ×2 (13:12→14:38)
[2017-07-18] MEDS ORDERED: PROPOFOL 200 MG/20 ML VIAL As Ordered (13:12)
[2017-07-18] MEDS ORDERED: MIDAZOLAM INJ 2 MG/2 ML VIAL (J2250) As Ordered (13:13)
[2017-07-18] MEDS ORDERED: fentaNYL 100 MCG/2 ML INJECTION (J3010) As Ordered ×2 (13:14→14:25)
[2017-07-18] MEDS: BUPIVACAINE HCL 0.25% 30 ML VIAL As Ordered (13:15)
[2017-07-18] MEDS: HEPARIN SOD (PORCINE) 5000 UNITS/ML VIAL As Ordered (13:15)
[2017-07-18] MEDS ORDERED: D5W/0.45% SODIUM CHLORIDE 1,000 ML IV (13:15)
[2017-07-18] MEDS: D5W/0.45% SODIUM CHLORIDE 1,000 ML IV (13:35)
[2017-07-18] MEDS ORDERED: DEXTROSE 50% 50 ML SYRINGE IV (15:15)
[2017-07-18] MEDS ORDERED: GLUCAGON FOR INJ 1 MG VIAL (J1610) SC (15:15)
[2017-07-18] MEDS ORDERED: GLUCOSE 4 GM CHEW TABLET PO (15:15)
[2017-07-18] MEDS ORDERED: GLYCOPYRROLATE INJ 0.2 MG/ML 2 ML VIAL As Ordered ×2 (15:26)
[2017-07-18] MEDS ORDERED: NEOSTIGMINE 10 MG/10 ML VIAL (J2710) As Ordered ×2 (15:26)
[2017-07-18] MEDS ORDERED: PERCOCET 5MG/325MG TAB As Ordered (16:13)
[2017-07-18] MEDS: PERCOCET 5MG/325MG TAB PO (16:21)
[2017-07-18] MEDS ORDERED: MEPERIDINE INJ 25 MG/ML VIAL (J2175) IV (16:30)
[2017-07-18] MEDS ORDERED: fentaNYL 100 MCG/2 ML INJECTION (J3010) IV (16:30)
[2017-07-18] MEDS ORDERED: METOCLOPRAMIDE INJ 10MG/2ML VIAL (J2765) IV (16:30)
[2017-07-18] MEDS ORDERED: ONDANSETRON 4MG/2ML VIAL (J2405) IV (16:30)
[2017-07-18] MEDS ORDERED: NS 1,000 ML IV (16:30)
[2017-07-18 17:07] LABS: BEDSIDE GLUCOSE 135 MG/DL (70-105)
[2017-07-18 19:12] LABS: HEMATOCRIT 24.7 % (42.0-52.0); HEMOGLOBIN 8.1 g/dl (13.5-17.5)
[2017-07-18 23:53] LABS: HEMATOCRIT 23.3 % (42.0-52.0); HEMOGLOBIN 7.6 g/dl (13.5-17.5)
[2017-07-19 01:48] LABS: BF MONONUCLEAR CELL % 18.7 % (0-0); BF POLYMORPHONUCLEAR CELL % 81.3 % (0-0); RBC BODY FLUID 349 10^3/uL (<2); WBC BODY FLUID 1088 /uL (0-10)
[2017-07-19 01:50] LABS: APPEARANCE, BODY FLUID TURBID (CLEAR); PERITONEAL FL COLOR RED (COLORLESS); SOURCE, BODY FLUID PERITONEAL
[2017-07-19 01:51] LABS: BF DIFF IF INDICATED? YES (NO)
[2017-07-19] MEDS: ACETAMINOPHEN TAB 650MG DOSE (2X325MG) PO (02:25)
[2017-07-19 02:33] LABS: IMMEDIATE SPIN CROSSMATCH 1 1
[2017-07-19 05:00] LABS: HEMATOCRIT 24.1 % (42.0-52.0); HEMOGLOBIN 8.1 g/dl (13.5-17.5); MEAN CORPUSCULAR HEMOGLOBIN 29.3 pg (27.0-33.0); MEAN CORPUSCULAR HGB CONC 33.6 g/dl (32.0-36.5); MEAN CORPUSCULAR VOLUME 87.3 fl (80.0-96.0); PLATELET COUNT, AUTOMATED 281 10^3/uL (150-450); RED BLOOD COUNT 2.76 10^6/uL (4.30-6.10); RED CELL DISTRIBUTION WIDTH 13.9 % (11.5-14.5)
[2017-07-19 05:20] LABS: ANION GAP 9 MEQ/L (8-16); BLOOD UREA NITROGEN 48 MG/DL (7-18); CALCIUM LEVEL 7.3 MG/DL (8.5-10.1); CARBON DIOXIDE LEVEL 18 MEQ/L (21-32); CHLORIDE LEVEL 114 MEQ/L (98-107); CREATININE FOR GFR 5.16 MG/DL (0.70-1.30); GLOMERULAR FILTRATION RATE 12.9 (>60); GLUCOSE, FASTING 104 MG/DL (70-100); POTASSIUM SERUM 4.6 MEQ/L (3.5-5.1); SODIUM LEVEL 141 MEQ/L (136-145)
[2017-07-19 05:21] LABS: VANCOMYCIN RANDOM 14.9 UG/ML
[2017-07-19] MEDS: VANCOMYCIN HCL 1,000 MG, VIAL MATE ADAPTER 1 EACH in D5W 250 ML IV (09:25)
[2017-07-19 14:17] LABS: HEMATOCRIT 27.7 % (42.0-52.0); HEMOGLOBIN 9.2 g/dl (13.5-17.5)
[2017-07-19] MEDS: GENTAMICIN SULF INJ 80MG/2ML VIAL (J1580) IP ×2 (14:44→15:56)
[2017-07-19] MEDS ORDERED: GENTAMICIN SULF INJ 80MG/2ML VIAL (J1580) IP (15:30)
[2017-07-19] MEDS: FLUCONAZOLE 100 MG TAB PO (15:36)
[2017-07-19 19:59] LABS: HEMATOCRIT 26.3 % (42.0-52.0); HEMOGLOBIN 8.6 g/dl (13.5-17.5)
[2017-07-19] MEDS: CARVedilol 6.25 MG TAB PO (21:35)
[2017-07-19] MEDS: SIMVASTATIN 10 MG TAB PO (21:35)
[2017-07-20 01:18] LABS: HEMOGLOBIN 8.3 g/dl (13.5-17.5)
[2017-07-20 05:44] LABS: HEMATOCRIT 24.7 % (42.0-52.0); HEMOGLOBIN 8.1 g/dl (13.5-17.5); MEAN CORPUSCULAR HEMOGLOBIN 28.8 pg (27.0-33.0); MEAN CORPUSCULAR HGB CONC 32.8 g/dl (32.0-36.5); MEAN CORPUSCULAR VOLUME 87.9 fl (80.0-96.0); PLATELET COUNT, AUTOMATED 260 10^3/uL (150-450); RED BLOOD COUNT 2.81 10^6/uL (4.30-6.10); RED CELL DISTRIBUTION WIDTH 13.8 % (11.5-14.5); WHITE BLOOD COUNT 7.7 10^3/uL (4.0-10.0)
[2017-07-20 06:04] LABS: ANION GAP 8 MEQ/L (8-16); BLOOD UREA NITROGEN 44 MG/DL (7-18); CALCIUM LEVEL 7.9 MG/DL (8.5-10.1); CARBON DIOXIDE LEVEL 21 MEQ/L (21-32); CHLORIDE LEVEL 115 MEQ/L (98-107); CREATININE FOR GFR 4.62 MG/DL (0.70-1.30); GLOMERULAR FILTRATION RATE 14.6 (>60); GLUCOSE, FASTING 89 MG/DL (70-100); MAGNESIUM LEVEL 1.9 MG/DL (1.8-2.4); POTASSIUM SERUM 3.8 MEQ/L (3.5-5.1); SODIUM LEVEL 144 MEQ/L (136-145)
[2017-07-20] MEDS ORDERED: GENTAMICIN SULF INJ 80MG/2ML VIAL (J1580) IP (09:00)
[2017-07-20 09:13] LABS: BF MONONUCLEAR CELL % 51.3 % (0-0); BF POLYMORPHONUCLEAR CELL % 48.7 % (0-0); RBC BODY FLUID 70 10^3/uL (<2); WBC BODY FLUID 572 /uL (0-10)
[2017-07-20 09:18] LABS: APPEARANCE, BODY FLUID TURBID (CLEAR); PERITONEAL FL COLOR RED (COLORLESS); SOURCE, BODY FLUID PERITONEAL
[2017-07-20 09:19] LABS: BF DIFF IF INDICATED? YES (NO)
[2017-07-20] MEDS: OMEPRAZOLE 20 MG CAP PO (09:27)
[2017-07-20] MEDS: CALCITRIOL 0.25 MCG CAP (S0169) PO (09:27)
[2017-07-20] MEDS: FEBUXOSTAT 40 MG TABLET (ULORIC) PO (09:28)
[2017-07-20] MEDS: amLODIPine 10 MG TAB PO (09:28)
[2017-07-20] MEDS: CARVedilol 6.25 MG TAB PO ×2 (09:28→20:41)
[2017-07-20] MEDS: FLUCONAZOLE 100 MG TAB PO (09:28)
[2017-07-20] MEDS: VITAMIN D 1,000 INTERNATIONAL UNITS TABLET PO (09:28)
[2017-07-20 09:52] LABS: VANCOMYCIN RANDOM 16.8 UG/ML
[2017-07-20] MEDS: GENTAMICIN SULF INJ 80MG/2ML VIAL (J1580) IP (12:23)
[2017-07-20] MEDS: SIMVASTATIN 10 MG TAB PO (20:41)
[2017-07-21 05:41] LABS: HEMATOCRIT 25.5 % (42.0-52.0); HEMOGLOBIN 8.3 g/dl (13.5-17.5); MEAN CORPUSCULAR HEMOGLOBIN 28.6 pg (27.0-33.0); MEAN CORPUSCULAR HGB CONC 32.5 g/dl (32.0-36.5); MEAN CORPUSCULAR VOLUME 87.9 fl (80.0-96.0); PLATELET COUNT, AUTOMATED 247 10^3/uL (150-450); RED CELL DISTRIBUTION WIDTH 13.7 % (11.5-14.5); WHITE BLOOD COUNT 6.9 10^3/uL (4.0-10.0)
[2017-07-21 05:55] LABS: ANION GAP 8 MEQ/L (8-16); BLOOD UREA NITROGEN 43 MG/DL (7-18); CALCIUM LEVEL 7.9 MG/DL (8.5-10.1); CARBON DIOXIDE LEVEL 22 MEQ/L (21-32); CHLORIDE LEVEL 114 MEQ/L (98-107); CREATININE FOR GFR 4.37 MG/DL (0.70-1.30); GLOMERULAR FILTRATION RATE 15.6 (>60); GLUCOSE, FASTING 103 MG/DL (70-100); MAGNESIUM LEVEL 1.7 MG/DL (1.8-2.4); POTASSIUM SERUM 3.6 MEQ/L (3.5-5.1); SODIUM LEVEL 144 MEQ/L (136-145)
[2017-07-21] MEDS: VITAMIN D 1,000 INTERNATIONAL UNITS TABLET PO (09:49)
[2017-07-21 09:50] LABS: BF DIFF IF INDICATED? YES (NO); BF MONONUCLEAR CELL % 58.8 % (0-0); BF POLYMORPHONUCLEAR CELL % 41.2 % (0-0); RBC BODY FLUID 102 10^3/uL (<2); WBC BODY FLUID 429 /uL (0-10)
[2017-07-21] MEDS: OMEPRAZOLE 20 MG CAP PO (09:50)
[2017-07-21] MEDS: CALCITRIOL 0.25 MCG CAP (S0169) PO (09:50)
[2017-07-21 09:51] LABS: APPEARANCE, BODY FLUID CLOUDY (CLEAR); PERITONEAL FL COLOR RED (COLORLESS); SOURCE, BODY FLUID PERITONEAL
[2017-07-21] MEDS: CARVedilol 6.25 MG TAB PO ×2 (09:52→21:01)
[2017-07-21] MEDS: FLUCONAZOLE 100 MG TAB PO (09:53)
[2017-07-21] MEDS: amLODIPine 10 MG TAB PO (09:53)
[2017-07-21] MEDS: FEBUXOSTAT 40 MG TABLET (ULORIC) PO (09:54)
[2017-07-21] MEDS: FERROUS SULFATE 325MG TAB PO (12:38)
[2017-07-21] MEDS: GENTAMICIN SULF INJ 80MG/2ML VIAL (J1580) IP (12:39)
[2017-07-21] MEDS: DARBEPOETIN 100 MCG/0.5 ML *NON-DIALYSIS* SYRINGE (J0881) SC (12:40)
[2017-07-21] MEDS: SIMVASTATIN 10 MG TAB PO (21:00)
[2017-07-21] MEDS: VANCOMYCIN 1000 MG/20 ML VIAL (J3370) IP (21:02)
[2017-07-22 05:23] LABS: HEMATOCRIT 29.5 % (42.0-52.0); HEMOGLOBIN 9.2 g/dl (13.5-17.5); MEAN CORPUSCULAR HEMOGLOBIN 28.8 pg (27.0-33.0); MEAN CORPUSCULAR HGB CONC 31.2 g/dl (32.0-36.5); MEAN CORPUSCULAR VOLUME 92.2 fl (80.0-96.0); PLATELET COUNT, AUTOMATED 260 10^3/uL (150-450); RED CELL DISTRIBUTION WIDTH 13.3 % (11.5-14.5); WHITE BLOOD COUNT 7.3 10^3/uL (4.0-10.0)
[2017-07-22 05:41] LABS: ANION GAP 9 MEQ/L (8-16); BLOOD UREA NITROGEN 43 MG/DL (7-18); CALCIUM LEVEL 8.3 MG/DL (8.5-10.1); CARBON DIOXIDE LEVEL 19 MEQ/L (21-32); CHLORIDE LEVEL 114 MEQ/L (98-107); CREATININE FOR GFR 4.29 MG/DL (0.70-1.30); GLUCOSE, FASTING 101 MG/DL (70-100); MAGNESIUM LEVEL 1.7 MG/DL (1.8-2.4); POTASSIUM SERUM 3.9 MEQ/L (3.5-5.1); SODIUM LEVEL 142 MEQ/L (136-145)
[2017-07-22] MEDS: FLUCONAZOLE 100 MG TAB PO (09:32)
[2017-07-22] MEDS: CALCITRIOL 0.25 MCG CAP (S0169) PO (09:32)
[2017-07-22] MEDS: FEBUXOSTAT 40 MG TABLET (ULORIC) PO (09:32)
[2017-07-22] MEDS: FERROUS SULFATE 325MG TAB PO (09:32)
[2017-07-22] MEDS: VITAMIN D 1,000 INTERNATIONAL UNITS TABLET PO (09:32)
[2017-07-22] MEDS: OMEPRAZOLE 20 MG CAP PO (09:32)
[2017-07-22] MEDS: CARVedilol 6.25 MG TAB PO (09:33)
[2017-07-22] MEDS: amLODIPine 10 MG TAB PO (09:36)
[2017-07-22] MEDS: APIXABAN 5 MG TAB (ELIQUIS) PO (09:36)
== END 2017-07-22 12:07 | disposition home or self-care (01) | DRG 229 ==
LOC: M ED 06:39 → M ED INP 10:14 → M PCU 13:05
PROC: 0W3G4ZZ Control Bleeding in Peritoneal Cavity, Percutaneous Endoscopic Approach (ICD-10-PCS; principal; 2017-07-18 13:03)
PROC: 30233N1 Transfusion of Nonautologous Red Blood Cells into Peripheral Vein, Percutaneous Approach (ICD-10-PCS; 2017-07-18 14:01)
DX: K66.1 Hemoperitoneum (principal); E66.01 Morbid (severe) obesity due to excess calories; N18.6 End stage renal disease; D62 Acute posthemorrhagic anemia; E87.2 Acidosis; E78.5 Hyperlipidemia, unspecified; K66.0 Peritoneal adhesions (postprocedural) (postinfection); M1A.30X0 Chronic gout due to renal impairment, unspecified site, without tophus (tophi); K65.0 Generalized (acute) peritonitis; Q61.3 Polycystic kidney, unspecified; I12.0 Hypertensive chronic kidney disease with stage 5 chronic kidney disease or end stage renal disease; Z95.828 Presence of other vascular implants and grafts; Z86.711 Personal history of pulmonary embolism; Z79.01 Long term (current) use of anticoagulants; Z86.718 Personal history of other venous thrombosis and embolism; Z79.899 Other long term (current) drug therapy

== ENCOUNTER → 2017-07-23 | Outpatient (REF) | payer BC ==
[2017-07-23 15:53] LABS: PERITONEAL FL COLOR RED (COLORLESS); RBC BODY FLUID 87 10^3/uL (<2); SOURCE, BODY FLUID PERITONEAL; WBC BODY FLUID 672 /uL (0-10)
[2017-07-23 15:54] LABS: APPEARANCE, BODY FLUID CLOUDY (CLEAR); BF DIFF IF INDICATED? YES (NO)
== END ==
LOC: M LAB REF 14:59
DX: M10.9 Gout, unspecified (principal)
CPT/HCPCS: 89051

== ENCOUNTER → 2017-07-26 | Outpatient (REF) | payer BC ==
[2017-07-26 17:06] LABS: HEMOGLOBIN 9.3 g/dl (13.5-17.5)
[2017-07-26 17:50] LABS: BF MONONUCLEAR CELL % 77.5 % (0-0); BF POLYMORPHONUCLEAR CELL % 22.5 % (0-0); RBC BODY FLUID 2 10^3/uL (<2); WBC BODY FLUID 62 /uL (0-10)
[2017-07-26 17:51] LABS: APPEARANCE, BODY FLUID HAZY (CLEAR); PERITONEAL DIALYSATE FL COLOR COLORLESS (COLORLESS); SOURCE, BODY FLUID PERITONEAL DIALYSATE
[2017-07-26 17:53] LABS: BF DIFF IF INDICATED? YES (NO)
== END ==
LOC: M LAB REF 16:13
DX: D50.9 Iron deficiency anemia, unspecified (principal)
CPT/HCPCS: 85014

== ENCOUNTER → 2017-08-02 | Outpatient (REF) | payer BC ==
[2017-08-02 18:47] LABS: BASO % 0.6 % (0.0-1.0); EOS # 0.4 10^3/uL (0.0-0.50); EOS % 5.8 % (0.0-3.0); HEMATOCRIT 31.1 % (42.0-52.0); HEMOGLOBIN 9.8 g/dl (13.5-17.5); IMMATURE GRANULOCYTE % 0.3 % (0-3.0); LYMPH # 1.1 10^3/uL (1.5-4.5); LYMPH % 17.4 % (24.0-44.0); MEAN CORPUSCULAR HEMOGLOBIN 27.4 pg (27.0-33.0); MEAN CORPUSCULAR HGB CONC 31.5 g/dl (32.0-36.5); MEAN CORPUSCULAR VOLUME 86.9 fl (80.0-96.0); MONO # 0.6 10^3/uL (0.0-0.8); MONO % 8.4 % (0.0-5.0); NEUTROPHILS # 4.4 10^3/uL (1.8-7.7); NEUTROPHILS % 67.5 % (36.0-66.0); PLATELET COUNT, AUTOMATED 351 10^3/uL (150-450); RED BLOOD COUNT 3.58 10^6/uL (4.30-6.10); RED CELL DISTRIBUTION WIDTH 13.8 % (11.5-14.5); WHITE BLOOD COUNT 6.6 10^3/uL (4.0-10.0)
== END ==
LOC: M LAB REF 15:55
DX: D50.9 Iron deficiency anemia, unspecified (principal)
CPT/HCPCS: 85025

== ENCOUNTER 2017-08-03 07:33 | Inpatient (IN) | payer BC ==
[2017-08-03] MEDS: APIXABAN 5 MG TAB (ELIQUIS) PO (00:48)
[2017-08-03] MEDS: SIMVASTATIN 10 MG TAB PO (00:48)
[2017-08-03] MEDS: CARVedilol 6.25 MG TAB PO (00:48)
[2017-08-03] MEDS: HYDROmorphone HCL 1 MG/ML SYRINGE (J1170) IV (08:35)
[2017-08-03] MEDS: ONDANSETRON 4MG/2ML VIAL (J2405) IV (08:40)
[2017-08-03 08:46] LABS: BASO % 0.6 % (0.0-1.0); EOS # 0.2 10^3/uL (0.0-0.50); EOS % 2.8 % (0.0-3.0); HEMATOCRIT 24.9 % (42.0-52.0); IMMATURE GRANULOCYTE % 0.4 % (0-3.0); LYMPH % 13.5 % (24.0-44.0); MEAN CORPUSCULAR HEMOGLOBIN 27.4 pg (27.0-33.0); MEAN CORPUSCULAR HGB CONC 31.3 g/dl (32.0-36.5); MEAN CORPUSCULAR VOLUME 87.4 fl (80.0-96.0); MONO # 0.6 10^3/uL (0.0-0.8); MONO % 7.9 % (0.0-5.0); NEUTROPHILS # 5.3 10^3/uL (1.8-7.7); NEUTROPHILS % 74.8 % (36.0-66.0); PLATELET COUNT, AUTOMATED 289 10^3/uL (150-450); RED BLOOD COUNT 2.85 10^6/uL (4.30-6.10); WHITE BLOOD COUNT 7.1 10^3/uL (4.0-10.0)
[2017-08-03 09:01] LABS: HEMOGLOBIN 7.8 g/dl (13.5-17.5)
[2017-08-03 09:11] LABS: LACTIC ACID SEPSIS PROTOCOL 1.9 MMOL/L (0.4-2.0)
[2017-08-03 09:13] LABS: ALBUMIN 2.7 GM/DL (3.2-5.2); ALBUMIN/GLOBULIN RATIO 0.87 (1.00-1.93); ALKALINE PHOSPHATASE 41 U/L (45-117); ALT/SGPT 18 U/L (12-78); ANION GAP 8 MEQ/L (8-16); AST/SGOT 8 U/L (7-37); BILIRUBIN,DIRECT < 0.1 MG/DL (0.0-0.2); BILIRUBIN,TOTAL 0.3 MG/DL (0.2-1.0); BLOOD UREA NITROGEN 35 MG/DL (7-18); CALCIUM LEVEL 8.1 MG/DL (8.5-10.1); CARBON DIOXIDE LEVEL 27 MEQ/L (21-32); CHLORIDE LEVEL 111 MEQ/L (98-107); GLOMERULAR FILTRATION RATE 13.4 (>60); GLUCOSE, FASTING 98 MG/DL (70-100); LIPASE 144 U/L (73-393); POTASSIUM SERUM 3.7 MEQ/L (3.5-5.1); SODIUM LEVEL 146 MEQ/L (136-145); TOTAL PROTEIN 5.8 GM/DL (6.4-8.2)
[2017-08-03] MEDS: amLODIPine 10 MG TAB PO (11:05)
[2017-08-03] MEDS ORDERED: PROPOFOL 200 MG/20 ML VIAL As Ordered (16:33)
[2017-08-03] MEDS ORDERED: dexameTHASONE 4 MG/ML 1ML VIAL (J1100) As Ordered (16:33)
[2017-08-03] MEDS ORDERED: fentaNYL 100 MCG/2 ML INJECTION (J3010) As Ordered ×3 (16:34→21:45)
[2017-08-03] MEDS ORDERED: LIDOCAINE 2% INJ 100 MG/5 ML SDV (FOR ANES.) As Ordered (16:34)
[2017-08-03] MEDS: FUROSEMIDE 40 MG TAB PO (17:00)
[2017-08-03] MEDS ORDERED: ROCURONIUM BROMIDE 50 MG/5 ML VIAL As Ordered (17:22)
[2017-08-03] MEDS ORDERED: MIDAZOLAM INJ 2 MG/2 ML VIAL (J2250) As Ordered (17:24)
[2017-08-03] MEDS: ceFAZolin 1GM INJ (J0690 PER 500MG) As Ordered (17:51)
[2017-08-03] MEDS ORDERED: NEOSTIGMINE 10 MG/10 ML VIAL (J2710) As Ordered (18:05)
[2017-08-03] MEDS ORDERED: ONDANSETRON 4MG/2ML VIAL (J2405) As Ordered (18:05)
[2017-08-03] MEDS ORDERED: GLYCOPYRROLATE INJ 0.2 MG/ML 2 ML VIAL As Ordered (18:05)
[2017-08-03] MEDS ORDERED: PHENYLephrine HCL 500 MCG/5 ML (100MCG/ML) SYRINGE (J2370) As Ordered (20:04)
[2017-08-03 20:30] LABS: BF MONONUCLEAR CELL % 32.9 % (0-0); BF POLYMORPHONUCLEAR CELL % 67.1 % (0-0); RBC BODY FLUID 1127 10^3/uL (<2); WBC BODY FLUID 1024 /uL (0-10)
[2017-08-03] MEDS: LIDOCAINE 1% SDV INJ 30 ML VIAL As Ordered (20:30)
[2017-08-03] MEDS: BUPIVACAINE HCL 0.5% 30 ML VIAL As Ordered (20:31)
[2017-08-03 20:32] LABS: APPEARANCE, BODY FLUID TURBID (CLEAR); BF DIFF IF INDICATED? YES (NO); PERITONEAL FL COLOR RED (COLORLESS); SOURCE, BODY FLUID PERITONEAL
[2017-08-03] MEDS ORDERED: SUGAMMADEX SODIUM 500 MG/5 ML VIAL (BRIDION) As Ordered (21:09)
[2017-08-03] MEDS: LR 1,000 ML IV ×2 (21:23→22:15)
[2017-08-03] MEDS ORDERED: ONDANSETRON 4MG/2ML VIAL (J2405) IV ×2 (21:45→22:15)
[2017-08-03] MEDS: fentaNYL 100 MCG/2 ML INJECTION (J3010) IV ×4 (21:45→22:00)
[2017-08-03] MEDS ORDERED: fentaNYL 100 MCG/2 ML INJECTION (J3010) IV (21:45)
[2017-08-03] MEDS: PERCOCET 5MG/325MG TAB PO ×2 (21:55→22:47)
[2017-08-03] MEDS ORDERED: PERCOCET 5MG/325MG TAB As Ordered ×2 (21:55→22:41)
[2017-08-03] MEDS ORDERED: HYDROMORPHONE HCL 0.5 MG/ 0.5 ML SYRINGE (J1170 PER 1) IV (22:15)
[2017-08-03] MEDS: HYDROMORPHONE HCL 0.5 MG/ 0.5 ML SYRINGE (J1170 PER 1) IV ×2 (22:35→22:40)
[2017-08-03 23:38] LABS: IMMEDIATE SPIN CROSSMATCH 1 1
[2017-08-04] MEDS: FUROSEMIDE 40 MG TAB PO ×3 (04:37→15:53)
[2017-08-04 06:40] LABS: BASO % 0.3 % (0.0-1.0); EOS % 0.3 % (0.0-3.0); HEMATOCRIT 22.7 % (42.0-52.0); HEMOGLOBIN 7.1 g/dl (13.5-17.5); IMMATURE GRANULOCYTE % 0.5 % (0-3.0); LYMPH # 0.9 10^3/uL (1.5-4.5); LYMPH % 12.2 % (24.0-44.0); MEAN CORPUSCULAR HEMOGLOBIN 27.5 pg (27.0-33.0); MEAN CORPUSCULAR HGB CONC 31.3 g/dl (32.0-36.5); MONO # 0.5 10^3/uL (0.0-0.8); NEUTROPHILS # 6.1 10^3/uL (1.8-7.7); NEUTROPHILS % 79.7 % (36.0-66.0); PLATELET COUNT, AUTOMATED 243 10^3/uL (150-450); RED BLOOD COUNT 2.58 10^6/uL (4.30-6.10); WHITE BLOOD COUNT 7.6 10^3/uL (4.0-10.0)
[2017-08-04 06:56] LABS: ALBUMIN 2.3 GM/DL (3.2-5.2); ANION GAP 11 MEQ/L (8-16); BLOOD UREA NITROGEN 30 MG/DL (7-18); CALCIUM LEVEL 6.8 MG/DL (8.5-10.1); CARBON DIOXIDE LEVEL 21 MEQ/L (21-32); CHLORIDE LEVEL 113 MEQ/L (98-107); CREATININE FOR GFR 5.29 MG/DL (0.70-1.30); GLOMERULAR FILTRATION RATE 12.5 (>60); GLUCOSE, FASTING 87 MG/DL (70-100); PHOSPHORUS LEVEL 5.3 MG/DL (2.5-4.9); POTASSIUM SERUM 4.3 MEQ/L (3.5-5.1); SODIUM LEVEL 145 MEQ/L (136-145)
[2017-08-04 07:50] LABS: iSTAT CA++ 4.4 MG/DL (4.5-5.3)
[2017-08-04] MEDS: PIPERACILLIN/TAZOBACTAM SOD 2.25 GM in D5W MINI-BAG PLUS 50 ML IV ×2 (09:11→20:18)
[2017-08-04] MEDS: VITAMIN D 1,000 INTERNATIONAL UNITS TABLET PO (09:12)
[2017-08-04] MEDS: OMEPRAZOLE 20 MG CAP PO (09:12)
[2017-08-04] MEDS: amLODIPine 10 MG TAB PO (09:13)
[2017-08-04] MEDS: CARVedilol 6.25 MG TAB PO ×2 (09:13→20:25)
[2017-08-04] MEDS: FLUCONAZOLE 100 MG TAB PO (09:13)
[2017-08-04] MEDS: APIXABAN 5 MG TAB (ELIQUIS) PO ×2 (09:13→20:25)
[2017-08-04] MEDS: VANCOMYCIN HCL 1,000 MG, VIAL MATE ADAPTER 1 EACH in D5W 250 ML IV ×2 (09:59→11:19)
[2017-08-04] MEDS: FEBUXOSTAT 40 MG TABLET (ULORIC) PO (11:21)
[2017-08-04 12:55] LABS: FERRITIN 186 NG/ML (26-388); IRON (FE) 38 UG/DL (65-175); PERCENT SATURATION 19.8 % (19.7-50.0); TOTAL IRON BINDING CAPACITY 192 UG/DL (250-450)
[2017-08-04] MEDS: ACETAMINOPHEN TAB 650MG DOSE (2X325MG) PO (14:22)
[2017-08-04] MEDS: HYDROmorphone 2 MG TAB PO (15:45)
[2017-08-04] MEDS ORDERED: PILL CRUSHER/CUTTER 1 EACH XX (15:45)
[2017-08-04] MEDS: FUROSEMIDE 100 MG/10 ML VIAL (J1940) IV (15:53)
[2017-08-04 16:48] LABS: IMMEDIATE SPIN CROSSMATCH 1 2
[2017-08-04] MEDS: SIMVASTATIN 10 MG TAB PO (20:25)
[2017-08-04] MEDS: traMADol 50 MG TAB PO (20:45)
[2017-08-04 20:51] LABS: ANION GAP 10 MEQ/L (8-16); BLOOD UREA NITROGEN 33 MG/DL (7-18); CALCIUM LEVEL 7.2 MG/DL (8.5-10.1); CARBON DIOXIDE LEVEL 20 MEQ/L (21-32); CHLORIDE LEVEL 110 MEQ/L (98-107); CREATININE FOR GFR 5.64 MG/DL (0.70-1.30); GLOMERULAR FILTRATION RATE 11.6 (>60); GLUCOSE, FASTING 136 MG/DL (70-100); POTASSIUM SERUM 3.9 MEQ/L (3.5-5.1); SODIUM LEVEL 140 MEQ/L (136-145)
[2017-08-05 08:22] LABS: BASO % 0.5 % (0.0-1.0); EOS # 0.4 10^3/uL (0.0-0.50); EOS % 6.8 % (0.0-3.0); HEMATOCRIT 26.2 % (42.0-52.0); HEMOGLOBIN 8.5 g/dl (13.5-17.5); IMMATURE GRANULOCYTE % 0.5 % (0-3.0); LYMPH # 0.8 10^3/uL (1.5-4.5); LYMPH % 12.1 % (24.0-44.0); MEAN CORPUSCULAR HEMOGLOBIN 27.8 pg (27.0-33.0); MEAN CORPUSCULAR HGB CONC 32.4 g/dl (32.0-36.5); MEAN CORPUSCULAR VOLUME 85.6 fl (80.0-96.0); MONO # 0.7 10^3/uL (0.0-0.8); MONO % 10.9 % (0.0-5.0); NEUTROPHILS # 4.5 10^3/uL (1.8-7.7); NEUTROPHILS % 69.2 % (36.0-66.0); PLATELET COUNT, AUTOMATED 211 10^3/uL (150-450); RED BLOOD COUNT 3.06 10^6/uL (4.30-6.10); RED CELL DISTRIBUTION WIDTH 14.6 % (11.5-14.5); WHITE BLOOD COUNT 6.5 10^3/uL (4.0-10.0)
[2017-08-05 08:54] LABS: ALBUMIN 2.4 GM/DL (3.2-5.2); ANION GAP 11 MEQ/L (8-16); BLOOD UREA NITROGEN 35 MG/DL (7-18); CALCIUM LEVEL 7.3 MG/DL (8.5-10.1); CARBON DIOXIDE LEVEL 23 MEQ/L (21-32); CHLORIDE LEVEL 110 MEQ/L (98-107); GLOMERULAR FILTRATION RATE 11.7 (>60); GLUCOSE, FASTING 124 MG/DL (70-100); PHOSPHORUS LEVEL 4.8 MG/DL (2.5-4.9); POTASSIUM SERUM 3.5 MEQ/L (3.5-5.1); SODIUM LEVEL 144 MEQ/L (136-145); VANCOMYCIN RANDOM 19.6 UG/ML
[2017-08-05] MEDS ORDERED: VANCOMYCIN INTERMITTENT/PULSE DOSING BY CLINICAL PHARMACIST PER DOSING PROTOCOL XX (09:00)
[2017-08-05] MEDS: OMEPRAZOLE 20 MG CAP PO (10:11)
[2017-08-05] MEDS: CALCITRIOL 0.25 MCG CAP (S0169) PO (10:11)
[2017-08-05] MEDS: FLUCONAZOLE 100 MG TAB PO (10:12)
[2017-08-05] MEDS: FEBUXOSTAT 40 MG TABLET (ULORIC) PO (10:12)
[2017-08-05] MEDS: VITAMIN D 1,000 INTERNATIONAL UNITS TABLET PO (10:12)
[2017-08-05] MEDS: APIXABAN 5 MG TAB (ELIQUIS) PO ×2 (10:12→21:57)
[2017-08-05] MEDS: CARVedilol 6.25 MG TAB PO ×2 (10:13→21:57)
[2017-08-05] MEDS: FUROSEMIDE 40 MG TAB PO ×2 (10:13→16:58)
[2017-08-05] MEDS: amLODIPine 10 MG TAB PO (10:13)
[2017-08-05] MEDS: PIPERACILLIN/TAZOBACTAM SOD 2.25 GM in D5W MINI-BAG PLUS 50 ML IV (10:13)
[2017-08-05] MEDS: ACETAMINOPHEN TAB 650MG DOSE (2X325MG) PO (10:31)
[2017-08-05 11:27] LABS: BF MONONUCLEAR CELL % 57.9 % (0-0); BF POLYMORPHONUCLEAR CELL % 42.1 % (0-0); PERITONEAL DIALYSATE FL COLOR RED (COLORLESS); RBC BODY FLUID 27 10^3/uL (<2); SOURCE, BODY FLUID PERITONEAL DIALYSATE; WBC BODY FLUID 268 /uL (0-10)
[2017-08-05 11:28] LABS: APPEARANCE, BODY FLUID TURBID (CLEAR); BF DIFF IF INDICATED? YES (NO)
[2017-08-05] MEDS: VANCOMYCIN HCL 1,000 MG, VIAL MATE ADAPTER 1 EACH in D5W 250 ML IV (13:37)
[2017-08-05] MEDS: DOCUSATE SODIUM 100 MG CAP PO (13:37)
[2017-08-05] MEDS: SIMVASTATIN 10 MG TAB PO (21:57)
[2017-08-05] MEDS: GENTAMICIN SULF INJ 80MG/2ML VIAL (J1580) IP (23:24)
[2017-08-06] MEDS: ACETAMINOPHEN TAB 650MG DOSE (2X325MG) PO (00:49)
[2017-08-06 06:24] LABS: BASO % 0.4 % (0.0-1.0); EOS # 0.6 10^3/uL (0.0-0.50); EOS % 9.9 % (0.0-3.0); HEMATOCRIT 27.6 % (42.0-52.0); HEMOGLOBIN 9.2 g/dl (13.5-17.5); IMMATURE GRANULOCYTE % 0.7 % (0-3.0); LYMPH % 17.1 % (24.0-44.0); MEAN CORPUSCULAR HEMOGLOBIN 28.2 pg (27.0-33.0); MEAN CORPUSCULAR HGB CONC 33.3 g/dl (32.0-36.5); MEAN CORPUSCULAR VOLUME 84.7 fl (80.0-96.0); MONO # 0.7 10^3/uL (0.0-0.8); MONO % 11.8 % (0.0-5.0); NEUTROPHILS # 3.4 10^3/uL (1.8-7.7); NEUTROPHILS % 60.1 % (36.0-66.0); PLATELET COUNT, AUTOMATED 241 10^3/uL (150-450); RED BLOOD COUNT 3.26 10^6/uL (4.30-6.10); RED CELL DISTRIBUTION WIDTH 14.3 % (11.5-14.5); WHITE BLOOD COUNT 5.7 10^3/uL (4.0-10.0)
[2017-08-06 06:41] LABS: ALBUMIN 2.4 GM/DL (3.2-5.2); ANION GAP 7 MEQ/L (8-16); BLOOD UREA NITROGEN 32 MG/DL (7-18); CALCIUM LEVEL 8.1 MG/DL (8.5-10.1); CARBON DIOXIDE LEVEL 28 MEQ/L (21-32); CHLORIDE LEVEL 108 MEQ/L (98-107); CREATININE FOR GFR 5.17 MG/DL (0.70-1.30); GLOMERULAR FILTRATION RATE 12.9 (>60); GLUCOSE, FASTING 97 MG/DL (70-100); POTASSIUM SERUM 3.1 MEQ/L (3.5-5.1); SODIUM LEVEL 143 MEQ/L (136-145)
[2017-08-06] MEDS ORDERED: VANCOMYCIN HCL 1,000 MG, VIAL MATE ADAPTER 1 EACH in D5W 250 ML IV (08:00)
[2017-08-06 08:01] LABS: BF MONONUCLEAR CELL % 67.8 % (0-0); BF POLYMORPHONUCLEAR CELL % 32.2 % (0-0); RBC BODY FLUID 24 10^3/uL (<2); WBC BODY FLUID 149 /uL (0-10)
[2017-08-06 08:03] LABS: APPEARANCE, BODY FLUID HAZY (CLEAR); PERITONEAL DIALYSATE FL COLOR PINK (COLORLESS); SOURCE, BODY FLUID PERITONEAL DIALYSATE
[2017-08-06 08:04] LABS: BF DIFF IF INDICATED? YES (NO)
[2017-08-06] MEDS: VITAMIN D 1,000 INTERNATIONAL UNITS TABLET PO (08:38)
[2017-08-06] MEDS: FLUCONAZOLE 100 MG TAB PO (08:39)
[2017-08-06] MEDS: FUROSEMIDE 40 MG TAB PO (08:39)
[2017-08-06] MEDS: FERROUS GLUCONATE 324 MG TAB PO (08:39)
[2017-08-06] MEDS: OMEPRAZOLE 20 MG CAP PO (08:39)
[2017-08-06] MEDS: DOCUSATE SODIUM 100 MG CAP PO (08:39)
[2017-08-06] MEDS: APIXABAN 5 MG TAB (ELIQUIS) PO (08:39)
[2017-08-06] MEDS: CARVedilol 6.25 MG TAB PO (08:39)
[2017-08-06] MEDS: amLODIPine 10 MG TAB PO (08:40)
[2017-08-06] MEDS: POTASSIUM CHLORIDE 10 MEQ SR TABLET PO (08:44)
[2017-08-06] MEDS: DARBEPOETIN 100 MCG/0.5 ML *NON-DIALYSIS* SYRINGE (J0881) SC (09:00)
[2017-08-06] MEDS: FEBUXOSTAT 40 MG TABLET (ULORIC) PO (09:00)
[2017-08-06] MEDS ORDERED: GENTAMICIN SULF INJ 80MG/2ML VIAL (J1580) IP (22:00)
== END 2017-08-06 11:27 | disposition home or self-care (01) | DRG 951 ==
LOC: M ED 07:33 → M ED INP 10:25 → M MSPAV 15:17
PROC: 0WPG33Z Removal of Infusion Device from Peritoneal Cavity, Percutaneous Approach (ICD-10-PCS; principal; 2017-08-03 13:46)
PROC: 0WHG33Z Insertion of Infusion Device into Peritoneal Cavity, Percutaneous Approach (ICD-10-PCS; 2017-08-03 13:46)
DX: T85.71XA Infection and inflammatory reaction due to peritoneal dialysis catheter, initial encounter (principal); K65.9 Peritonitis, unspecified; Q61.3 Polycystic kidney, unspecified; I12.0 Hypertensive chronic kidney disease with stage 5 chronic kidney disease or end stage renal disease; N18.6 End stage renal disease; D62 Acute posthemorrhagic anemia; T82.49XA Other complication of vascular dialysis catheter, initial encounter; K76.0 Fatty (change of) liver, not elsewhere classified; E66.01 Morbid (severe) obesity due to excess calories; Z68.41 Body mass index [BMI] 40.0-44.9, adult; Y83.1 Surgical operation with implant of artificial internal device as the cause of abnormal reaction of the patient, or of later complication, without mention of misadventure at the time of the procedure; E78.5 Hyperlipidemia, unspecified; M10.9 Gout, unspecified; D63.1 Anemia in chronic kidney disease; Z86.711 Personal history of pulmonary embolism; Z86.718 Personal history of other venous thrombosis and embolism; Z99.2 Dependence on renal dialysis; Z79.01 Long term (current) use of anticoagulants; Z79.899 Other long term (current) drug therapy; T85.838A Hemorrhage due to other internal prosthetic devices, implants and grafts, initial encounter; T80.90XA Unspecified complication following infusion and therapeutic injection, initial encounter

== ENCOUNTER → 2017-09-09 | Outpatient (CLI) | payer BC ==
[~2017-09-09] MED LIST changes: -AMLO10TA2 PO; -CALC1CAP31 PO; -CARV6.25 PO; -FEBU40TA PO; +ISOVUE-370 76% 100ML VIAL (Q9967) As Ordered; -LOSA100T5 PO; -OMEP40CA2 PO; -SIMV10TA2 PO; -VITA200016 PO
== END ==
LOC: M RAD 14:39
DX: Q61.2 Polycystic kidney, adult type (principal); D30.00 Benign neoplasm of unspecified kidney; Z99.2 Dependence on renal dialysis; D18.03 Hemangioma of intra-abdominal structures; M79.81 Nontraumatic hematoma of soft tissue
CPT/HCPCS: Q9967

== ENCOUNTER 2017-10-03 08:44 | Emergency (ER) | payer BC ==
[2017-10-03 09:37] LABS: BASO % 0.2 % (0.0-1.0); EOS # 0.1 10^3/uL (0.0-0.50); EOS % 0.6 % (0.0-3.0); HEMOGLOBIN 13.6 g/dl (13.5-17.5); IMMATURE GRANULOCYTE % 0.2 % (0-3.0); LYMPH # 0.8 10^3/uL (1.5-4.5); LYMPH % 9.4 % (24.0-44.0); MEAN CORPUSCULAR HEMOGLOBIN 26.7 pg (27.0-33.0); MEAN CORPUSCULAR HGB CONC 32.4 g/dl (32.0-36.5); MEAN CORPUSCULAR VOLUME 82.4 fl (80.0-96.0); MONO # 0.5 10^3/uL (0.0-0.8); MONO % 5.4 % (0.0-5.0); NEUTROPHILS # 6.9 10^3/uL (1.8-7.7); NEUTROPHILS % 84.2 % (36.0-66.0); PLATELET COUNT, AUTOMATED 296 10^3/uL (150-450); WHITE BLOOD COUNT 8.3 10^3/uL (4.0-10.0)
[2017-10-03 09:48] LABS: BF MONONUCLEAR CELL % 10.3 % (0-0); BF POLYMORPHONUCLEAR CELL % 89.7 % (0-0); INR 1.35; PROTHROMBIN TIME 16.9 SECONDS (12.1-14.4); RBC BODY FLUID 3 10^3/uL (<2)
[2017-10-03 09:49] LABS: PARTIAL THROMBOPLASTIN TIME 30.6 SECONDS (25.4-37.6)
[2017-10-03] MEDS ORDERED: ISOVUE-370 76% 100ML VIAL (Q9967) As Ordered (09:53)
[2017-10-03 10:09] LABS: ALBUMIN 3.1 GM/DL (3.2-5.2); ALBUMIN/GLOBULIN RATIO 0.72 (1.00-1.93); ALKALINE PHOSPHATASE 48 U/L (45-117); ALT/SGPT 31 U/L (12-78); AMYLASE 45 U/L (25-115); ANION GAP 9 MEQ/L (8-16); AST/SGOT 11 U/L (7-37); BILIRUBIN,DIRECT < 0.1 MG/DL (0.0-0.2); BILIRUBIN,TOTAL 0.3 MG/DL (0.2-1.0); BLOOD UREA NITROGEN 49 MG/DL (7-18); CALCIUM LEVEL 8.9 MG/DL (8.5-10.1); CARBON DIOXIDE LEVEL 25 MEQ/L (21-32); CHLORIDE LEVEL 107 MEQ/L (98-107); CREATININE FOR GFR 4.79 MG/DL (0.70-1.30); GLUCOSE, FASTING 168 MG/DL (70-100); LIPASE 200 U/L (73-393); POTASSIUM SERUM 3.6 MEQ/L (3.5-5.1); SODIUM LEVEL 141 MEQ/L (136-145); TOTAL PROTEIN 7.4 GM/DL (6.4-8.2)
[2017-10-03 10:12] LABS: APPEARANCE, BODY FLUID HAZY (CLEAR); BF DIFF IF INDICATED? YES (NO); PERITONEAL DIALYSATE FL COLOR COLORLESS (COLORLESS); SOURCE, BODY FLUID PERITONEAL DIALYSATE; WBC BODY FLUID 46720 /uL (0-10)
[2017-10-03] MEDS: ACETAMINOPHEN TAB 650MG DOSE (2X325MG) PO (10:26)
[2017-10-03] MEDS: VANCOMYCIN 1000 MG/20 ML VIAL (J3370) IP (13:22)
[2017-10-03] MEDS: GENTAMICIN SULF INJ 80MG/2ML VIAL (J1580) IP (13:22)
== END 2017-10-03 13:43 | disposition home or self-care (01) ==
LOC: M ED 08:44
DX: K65.9 Peritonitis, unspecified (principal); I10 Essential (primary) hypertension; E78.5 Hyperlipidemia, unspecified
CPT/HCPCS: J3370

== ENCOUNTER → 2018-02-25 | Outpatient (CLI) | payer BC ==
[~2018-02-25] MED LIST changes: +AMLO10TA5 PO; +CALC1CAP31 PO; +CARV6.25 PO; +ELIQ5TAB PO; +FEBU40TA PO; +FERR1TAB8 PO; +FLUC10TA PO; +FURO40TA2 PO; -ISOVUE-370 76% 100ML VIAL (Q9967) As Ordered; +LOSA100T5 PO; +OMEP40CA2 PO; +SIMV10TA2 PO; +VITA-121 PO; +VITA200016 PO; +VP-V1TAB PO
[2018-02-25 10:35] LABS: BASO % 0.2 % (0.0-1.0); EOS # 0.1 10^3/uL (0.0-0.50); EOS % 0.8 % (0.0-3.0); HEMATOCRIT 33.3 % (42.0-52.0); HEMOGLOBIN 10.5 g/dl (13.5-17.5); LYMPH % 0.8 % (24.0-44.0); MEAN CORPUSCULAR HEMOGLOBIN 28.2 pg (27.0-33.0); MEAN CORPUSCULAR HGB CONC 31.5 g/dl (32.0-36.5); MEAN CORPUSCULAR VOLUME 89.3 fl (80.0-96.0); MONO # 0.8 10^3/uL (0.0-0.8); MONO % 6.9 % (0.0-5.0); NEUTROPHILS # 10.5 10^3/uL (1.8-7.7); NEUTROPHILS % 89.2 % (36.0-66.0); PLATELET COUNT, AUTOMATED 311 10^3/uL (150-450); RED BLOOD COUNT 3.73 10^6/uL (4.30-6.10); WHITE BLOOD COUNT 11.8 10^3/uL (4.0-10.0)
[2018-02-25 10:46] LABS: INR 1.87; PROTHROMBIN TIME 21.9 SECONDS (12.1-14.4)
[2018-02-25 10:47] LABS: AMORPHOUS SEDIMENT SMALL (NEGATIVE); APPEARANCE, URINE CLEAR (CLEAR); BACTERIA, URINE AUTO NEGATIVE (NEGATIVE); BILIRUBIN, URINE AUTO NEGATIVE (NEGATIVE); BLOOD, URINE BLOOD 2+ (NEGATIVE); COLOR, URINE STRAW (YELLOW); GLUCOSE, URINE (UA) AUTO 1+ mg/dL (NEGATIVE); KETONE, URINE AUTO NEGATIVE (NEGATIVE); LEUKOCYTE ESTERASE, URINE AUTO NEGATIVE (NEGATIVE); NITRITE, URINE AUTO NEGATIVE (NEGATIVE); PROTEIN, URINE AUTO 1+ mg/dL (NEGATIVE); RBC, URINE AUTO 48 /HPF (0-3); SPECIFIC GRAVITY URINE AUTO 1.009 (1.002-1.035); SQUAMOUS EPITHELIAL CELL UR AU 0 /HPF (0-6); UROBILINOGEN, URINE AUTO 0.2 mg/dL (0.0-2.0); WBC, URINE AUTO 4 /HPF (0-3)
[2018-02-25 11:03] LABS: ALBUMIN 3.1 GM/DL (3.2-5.2); CALCIUM LEVEL 8.5 MG/DL (8.5-10.1); CREATININE FOR GFR 4.27 MG/DL (0.70-1.30); MAGNESIUM LEVEL 1.6 MG/DL (1.8-2.4); PHOSPHORUS LEVEL 3.6 MG/DL (2.5-4.9)
[2018-02-25 11:16] LABS: CREATININE,RANDOM URINE 70.5 MG/DL; TOTAL PROTEIN,RANDOM URINE 72.4 MG/DL (0.0-12.0)
[2018-02-25 11:24] LABS: LYMPH # 0.1 10^3/uL (1.5-4.5)
== END ==
LOC: M SMT 09:06
PROVIDERS: ATTEND Internal Medicine Nephrology
DX: N18.5 Chronic kidney disease, stage 5 (principal); D84.9 Immunodeficiency, unspecified; Z94.0 Kidney transplant status; Z79.899 Other long term (current) drug therapy

== ENCOUNTER → 2018-04-15 | Outpatient (CLI) | payer BC, MEDICARE ==
[2018-04-15 09:57] LABS: BASO % 0.6 % (0.0-1.0); EOS # 0.1 10^3/uL (0.0-0.50); EOS % 3.6 % (0.0-3.0); HEMATOCRIT 42.8 % (42.0-52.0); HEMOGLOBIN 13.3 g/dl (13.5-17.5); LYMPH % 13.2 % (24.0-44.0); MEAN CORPUSCULAR HEMOGLOBIN 26.9 pg (27.0-33.0); MEAN CORPUSCULAR HGB CONC 31.1 g/dl (32.0-36.5); MEAN CORPUSCULAR VOLUME 86.6 fl (80.0-96.0); MONO # 0.3 10^3/uL (0.0-0.8); MONO % 17.4 % (0.0-5.0); NEUTROPHILS # 1.1 10^3/uL (1.8-7.7); NEUTROPHILS % 62.8 % (36.0-66.0); PLATELET COUNT, AUTOMATED 273 10^3/uL (150-450); RED BLOOD COUNT 4.94 10^6/uL (4.30-6.10)
[2018-04-15 10:09] LABS: INR 1.36
[2018-04-15 10:35] LABS: LYMPH # 0.2 10^3/uL (1.5-4.5); WHITE BLOOD COUNT 1.7 10^3/uL (4.0-10.0)
== END ==
LOC: M SMT 08:43
PROVIDERS: ATTEND Transplant Surgery
DX: Z94.0 Kidney transplant status (principal)

== ENCOUNTER 2018-05-20 08:33 | Day surgery (SDC) | payer BC, MEDICARE ==
[~2018-05-20] VITALS: Ht 188 cm; Wt 130.2 kg
[~2018-05-20 08:33] MED LIST changes: +COUM1TAB17 PO; +LR 1,000 ML IV ONE; +MAGN400C PO; +PRED5PAK PO; +RANI15TA PO; +SIRO1TAB4 PO; +TACR1CAP3 PO
[2018-05-20] MEDS ORDERED: VALG1TAB PO (09:11)
[2018-05-20] MEDS ORDERED: COUM2TAB22 PO (09:11)
[2018-05-20] MEDS ORDERED: sodium bicarbonate PO (09:11)
[2018-05-20 09:13] LABS: INR 1.69; PROTHROMBIN TIME 20.2 SECONDS (12.1-14.4)
[2018-05-20] MEDS ORDERED: MIDAZOLAM INJ 2 MG/2 ML VIAL (J2250) As Ordered ONE (09:23)
[2018-05-20] MEDS ORDERED: fentaNYL 100 MCG/2 ML INJECTION (J3010) As Ordered ONE (09:23)
[2018-05-20] MEDS ORDERED: PROPOFOL 200 MG/20 ML VIAL As Ordered ONE ×2 (09:26→10:14)
[2018-05-20] MEDS ORDERED: ONDANSETRON 4MG/2ML VIAL (J2405) As Ordered ONE (09:28)
[2018-05-20] MEDS ORDERED: dexameTHASONE 4 MG/ML 1ML VIAL (J1100) As Ordered ONE (09:28)
[2018-05-20] MEDS ORDERED: LIDOCAINE 2% INJ 100 MG/5 ML SDV (FOR ANES.) As Ordered ONE (12:00)
[2018-05-20] MEDS ORDERED: LIDOCAINE 1% MDV 20ML VIAL As Ordered ONE (12:19)
[2018-05-20] MEDS ORDERED: BUPIVACAINE HCL 0.5% 10 ML VIAL As Ordered ONE (12:19)
[2018-05-20 12:45] VITALS: BP 128/79
--- NOTE | 2018-05-25 14:20 | RO ---
DATE OF PROCEDURE: 05/20/2018 ATTENDING SURGEON: Dr. Trey Chris MANHOLE STRIPPER: None. PREOPERATIVE DIAGNOSIS: End-stage renal disease, status post renal transplantation, peritoneal dialysis catheter. POSTOPERATIVE DIAGNOSIS: End-stage renal disease, status post renal transplantation, peritoneal dialysis catheter. PROCEDURE: Peritoneal dialysis catheter removal. INDICATION: The patient is a 48-year-old male with end-stage renal disease from polycystic kidney disease who has undergone transplantation and no longer requires the peritoneal dialysis catheter. The patient will undergo removal. Risks, benefits and alternative treatment options were discussed with the patient. ANESTHESIA: Monitored anesthesia care (MAC). ESTIMATED BLOOD LOSS: Minimal. INTRAVENOUS (IV) FLUIDS: None. COMPLICATIONS: None. DRAINS: None. SPECIMENS: None. IMPLANTS: None. DESCRIPTION OF PROCEDURE: The patient was taken to the operating room, placed supine on the operating room table and then prepped and draped in a standard surgical fashion. The peritoneal dialysis catheter was sharply dissected free through the entry site in the abdominal cavity with removal of both the subcutaneous and peritoneal cuffs. The catheter was removed and a dressing was applied. The patient tolerated the procedure well. All instrument, sponge and needle counts were correct at the end the case. There were no complications. Dr. Chris was present for and directed the entire case. The patient was transferred to the recovery room awake, alert, extubated and in stable condition.
== END 2018-05-20 13:05 | disposition home or self-care (01) ==
LOC: M SDC 08:33
PROVIDERS: ATTEND Surgery Vascular Surgery
DX: Z45.2 Encounter for adjustment and management of vascular access device (principal); Z94.0 Kidney transplant status
CPT/HCPCS: 36415; 36589; 85610; J1100; J2250; J2405; J3010

== ENCOUNTER → 2018-06-03 | Outpatient (CLI) | payer BC, MEDICARE ==
[~2018-06-03] MED LIST changes: +COUM2TAB22 PO; -LR 1,000 ML IV ONE; +VALG1TAB PO; +sodium bicarbonate PO
[2018-06-03 09:42] LABS: BASO % 0.5 % (0.0-1.0); EOS # 0.1 10^3/uL (0.0-0.50); EOS % 2.2 % (0.0-3.0); HEMATOCRIT 40.9 % (42.0-52.0); LYMPH # 0.4 10^3/uL (1.5-4.5); LYMPH % 10.2 % (24.0-44.0); MEAN CORPUSCULAR HEMOGLOBIN 26.4 pg (27.0-33.0); MEAN CORPUSCULAR HGB CONC 31.8 g/dl (32.0-36.5); MONO # 0.4 10^3/uL (0.0-0.8); NEUTROPHILS # 3.2 10^3/uL (1.8-7.7); NEUTROPHILS % 77.9 % (36.0-66.0); PLATELET COUNT, AUTOMATED 249 10^3/uL (150-450); RED BLOOD COUNT 4.93 10^6/uL (4.30-6.10); WHITE BLOOD COUNT 4.1 10^3/uL (4.0-10.0)
[2018-06-03 10:07] LABS: ALT/SGPT 52 U/L (12-78); BILIRUBIN,DIRECT < 0.1 MG/DL (0.0-0.2); BILIRUBIN,TOTAL 0.3 MG/DL (0.2-1.0); BLOOD UREA NITROGEN 24 MG/DL (7-18); CALCIUM LEVEL 9.4 MG/DL (8.5-10.1); CARBON DIOXIDE LEVEL 26 MEQ/L (21-32); CHLORIDE LEVEL 110 MEQ/L (98-107); CREATININE FOR GFR 1.76 MG/DL (0.70-1.30); GLOMERULAR FILTRATION RATE 44.4 (>60); GLUCOSE, FASTING 107 MG/DL (70-100); MAGNESIUM LEVEL 2.1 MG/DL (1.8-2.4); PHOSPHORUS LEVEL 2.7 MG/DL (2.5-4.9); POTASSIUM SERUM 3.9 MEQ/L (3.5-5.1); SODIUM LEVEL 143 MEQ/L (136-145)
[2018-06-03 10:19] LABS: CHOLESTEROL RISK RATIO 6.244 (<5)
[2018-06-03 10:25] LABS: TOTAL PROTEIN,RANDOM URINE 24.3 MG/DL (0.0-12.0)
[2018-06-03 11:27] LABS: APPEARANCE, URINE CLEAR (CLEAR); BACTERIA, URINE AUTO NEGATIVE (NEGATIVE); BILIRUBIN, URINE AUTO NEGATIVE (NEGATIVE); BLOOD, URINE BLOOD NEGATIVE (NEGATIVE); COLOR, URINE YELLOW (YELLOW); GLUCOSE, URINE (UA) AUTO NEGATIVE (NEGATIVE); KETONE, URINE AUTO NEGATIVE (NEGATIVE); LEUKOCYTE ESTERASE, URINE AUTO NEGATIVE (NEGATIVE); NITRITE, URINE AUTO NEGATIVE (NEGATIVE); PROTEIN, URINE AUTO NEGATIVE (NEGATIVE); RBC, URINE AUTO 0 /HPF (0-3); SQUAMOUS EPITHELIAL CELL UR AU 0 /HPF (0-6); UROBILINOGEN, URINE AUTO 0.2 mg/dL (0.0-2.0); WBC, URINE AUTO 0 /HPF (0-3)
== END ==
LOC: M SMT 08:20
PROVIDERS: ATTEND Internal Medicine Nephrology
DX: Z51.81 Encounter for therapeutic drug level monitoring (principal); Z79.899 Other long term (current) drug therapy; N18.5 Chronic kidney disease, stage 5; Z94.0 Kidney transplant status

== ENCOUNTER → 2018-06-13 | Outpatient (CLI) | payer BC ==
[2018-06-13 11:29] LABS: APPEARANCE, URINE HAZY (CLEAR); BACTERIA, URINE AUTO NEGATIVE (NEGATIVE); BILIRUBIN, URINE AUTO NEGATIVE (NEGATIVE); BLOOD, URINE BLOOD NEGATIVE (NEGATIVE); COLOR, URINE YELLOW (YELLOW); GLUCOSE, URINE (UA) AUTO NEGATIVE (NEGATIVE); KETONE, URINE AUTO NEGATIVE (NEGATIVE); LEUKOCYTE ESTERASE, URINE AUTO NEGATIVE (NEGATIVE); NITRITE, URINE AUTO NEGATIVE (NEGATIVE); PROTEIN, URINE AUTO NEGATIVE (NEGATIVE); RBC, URINE AUTO 5 /HPF (0-3); SPECIFIC GRAVITY URINE AUTO 1.016 (1.002-1.035); SQUAMOUS EPITHELIAL CELL UR AU 0 /HPF (0-6); UROBILINOGEN, URINE AUTO 0.2 mg/dL (0.0-2.0); WBC, URINE AUTO 1 /HPF (0-3)
[2018-06-13 11:30] LABS: BASO % 0.3 % (0.0-1.0); EOS # 0.1 10^3/uL (0.0-0.50); EOS % 1.8 % (0.0-3.0); HEMATOCRIT 42.2 % (42.0-52.0); HEMOGLOBIN 13.2 g/dl (13.5-17.5); LYMPH # 0.6 10^3/uL (1.5-4.5); LYMPH % 10.4 % (24.0-44.0); MEAN CORPUSCULAR HEMOGLOBIN 25.6 pg (27.0-33.0); MEAN CORPUSCULAR HGB CONC 31.3 g/dl (32.0-36.5); MEAN CORPUSCULAR VOLUME 81.8 fl (80.0-96.0); MONO # 0.6 10^3/uL (0.0-0.8); MONO % 10.4 % (0.0-5.0); NEUTROPHILS # 4.6 10^3/uL (1.8-7.7); NEUTROPHILS % 75.9 % (36.0-66.0); PLATELET COUNT, AUTOMATED 279 10^3/uL (150-450); RED BLOOD COUNT 5.16 10^6/uL (4.30-6.10)
[2018-06-13 11:37] LABS: TOTAL PROTEIN,RANDOM URINE 30.3 MG/DL (0.0-12.0)
[2018-06-13 11:39] LABS: INR 1.01; PROTHROMBIN TIME 13.4 SECONDS (12.1-14.4)
[2018-06-13 12:04] LABS: BLOOD UREA NITROGEN 28 MG/DL (7-18); CARBON DIOXIDE LEVEL 23 MEQ/L (21-32); CHLORIDE LEVEL 107 MEQ/L (98-107); CREATININE FOR GFR 1.88 MG/DL (0.70-1.30); GLOMERULAR FILTRATION RATE 41.2 (>60); GLUCOSE, FASTING 93 MG/DL (70-100); SODIUM LEVEL 139 MEQ/L (136-145)
[2018-06-13 12:05] LABS: ALBUMIN 3.8 GM/DL (3.2-5.2); ALT/SGPT 40 U/L (12-78); BILIRUBIN,DIRECT < 0.1 MG/DL (0.0-0.2); BILIRUBIN,TOTAL 0.3 MG/DL (0.2-1.0); MAGNESIUM LEVEL 1.7 MG/DL (1.8-2.4); PHOSPHORUS LEVEL 3.2 MG/DL (2.5-4.9); TOTAL PROTEIN 6.6 GM/DL (6.4-8.2)
== END ==
LOC: M SMT 08:06
PROVIDERS: ATTEND Internal Medicine Nephrology
DX: Z94.0 Kidney transplant status (principal); N18.5 Chronic kidney disease, stage 5; D84.9 Immunodeficiency, unspecified; Z79.899 Other long term (current) drug therapy

== ENCOUNTER → 2018-08-08 | Outpatient (CLI) | payer BC, MEDICARE ==
[2018-08-08 11:10] LABS: BASO % 0.2 % (0.0-1.0); EOS # 0.1 10^3/uL (0.0-0.50); EOS % 2.6 % (0.0-3.0); HEMATOCRIT 40.6 % (42.0-52.0); HEMOGLOBIN 12.9 g/dl (13.5-17.5); LYMPH # 0.6 10^3/uL (1.5-4.5); LYMPH % 11.4 % (24.0-44.0); MEAN CORPUSCULAR HEMOGLOBIN 25.5 pg (27.0-33.0); MEAN CORPUSCULAR HGB CONC 31.8 g/dl (32.0-36.5); MEAN CORPUSCULAR VOLUME 80.2 fl (80.0-96.0); MONO # 0.5 10^3/uL (0.0-0.8); MONO % 10.4 % (0.0-5.0); NEUTROPHILS # 3.7 10^3/uL (1.8-7.7); PLATELET COUNT, AUTOMATED 242 10^3/uL (150-450); RED BLOOD COUNT 5.06 10^6/uL (4.30-6.10); WHITE BLOOD COUNT 4.9 10^3/uL (4.0-10.0)
[2018-08-08 11:12] LABS: APPEARANCE, URINE CLEAR (CLEAR); BACTERIA, URINE AUTO NEGATIVE (NEGATIVE); BILIRUBIN, URINE AUTO NEGATIVE (NEGATIVE); BLOOD, URINE BLOOD 1+ (NEGATIVE); COLOR, URINE YELLOW (YELLOW); GLUCOSE, URINE (UA) AUTO NEGATIVE (NEGATIVE); KETONE, URINE AUTO NEGATIVE (NEGATIVE); LEUKOCYTE ESTERASE, URINE AUTO NEGATIVE (NEGATIVE); MUCUS, URINE SMALL (NEGATIVE); NITRITE, URINE AUTO NEGATIVE (NEGATIVE); PROTEIN, URINE AUTO NEGATIVE (NEGATIVE); RBC, URINE AUTO 3 /HPF (0-3); SPECIFIC GRAVITY URINE AUTO 1.016 (1.002-1.035); SQUAMOUS EPITHELIAL CELL UR AU 0 /HPF (0-6); UROBILINOGEN, URINE AUTO 0.2 mg/dL (0.0-2.0); WBC, URINE AUTO 1 /HPF (0-3)
[2018-08-08 11:21] LABS: ALBUMIN 3.7 GM/DL (3.2-5.2); ALT/SGPT 51 U/L (12-78); BILIRUBIN,DIRECT < 0.1 MG/DL (0.0-0.2); BILIRUBIN,TOTAL 0.3 MG/DL (0.2-1.0); BLOOD UREA NITROGEN 22 MG/DL (7-18); CALCIUM LEVEL 9.1 MG/DL (8.5-10.1); CARBON DIOXIDE LEVEL 25 MEQ/L (21-32); CHLORIDE LEVEL 109 MEQ/L (98-107); CREATININE FOR GFR 1.77 MG/DL (0.70-1.30); GLOMERULAR FILTRATION RATE 44.1 (>60); GLUCOSE, FASTING 98 MG/DL (70-100); MAGNESIUM LEVEL 1.8 MG/DL (1.8-2.4); PHOSPHORUS LEVEL 3.8 MG/DL (2.5-4.9); POTASSIUM SERUM 3.9 MEQ/L (3.5-5.1); SODIUM LEVEL 142 MEQ/L (136-145); TOTAL PROTEIN 6.9 GM/DL (6.4-8.2)
[2018-08-08 11:28] LABS: TOTAL PROTEIN,RANDOM URINE 32.6 MG/DL (0.0-12.0)
== END ==
LOC: M SMT 08:23
PROVIDERS: ATTEND Internal Medicine Nephrology
DX: Z94.0 Kidney transplant status (principal); N18.5 Chronic kidney disease, stage 5; D84.9 Immunodeficiency, unspecified; Z79.899 Other long term (current) drug therapy

== ENCOUNTER → 2018-08-10 | Outpatient (REF) | payer BC, MEDICARE ==
[2018-08-10 10:10] LABS: INR 0.97; PROTHROMBIN TIME 12.6 SECONDS (11.8-14.0)
== END ==
LOC: M LABSMT 09:38
PROVIDERS: ATTEND Internal Medicine Nephrology
DX: Z94.0 Kidney transplant status (principal); D84.9 Immunodeficiency, unspecified; N18.5 Chronic kidney disease, stage 5; Z79.899 Other long term (current) drug therapy

== ENCOUNTER → 2018-09-29 | Outpatient (CLI) | payer BC ==
[~2018-09-29] MED LIST changes: -FEBU40TA PO; +FEBU40TA4 PO; -OMEP40CA2 PO; +OMEP40CA97 PO; -SIMV10TA2 PO; +SIMV10TA21 PO
[2018-09-29 10:35] LABS: BASO % 0.2 % (0.0-1.0); EOS # 0.1 10^3/uL (0.0-0.50); EOS % 2.8 % (0.0-3.0); HEMATOCRIT 40.8 % (42.0-52.0); HEMOGLOBIN 13.4 g/dl (13.5-17.5); LYMPH # 0.9 10^3/uL (1.5-4.5); LYMPH % 19.1 % (24.0-44.0); MEAN CORPUSCULAR HEMOGLOBIN 26.1 pg (27.0-33.0); MEAN CORPUSCULAR HGB CONC 32.8 g/dl (32.0-36.5); MEAN CORPUSCULAR VOLUME 79.5 fl (80.0-96.0); MONO # 0.6 10^3/uL (0.0-0.8); MONO % 13.7 % (0.0-5.0); NEUTROPHILS % 63.6 % (36.0-66.0); PLATELET COUNT, AUTOMATED 184 10^3/uL (150-450); RED BLOOD COUNT 5.13 10^6/uL (4.30-6.10); WHITE BLOOD COUNT 4.7 10^3/uL (4.0-10.0)
[2018-09-29 10:39] LABS: APPEARANCE, URINE CLEAR (CLEAR); BACTERIA, URINE AUTO NEGATIVE (NEGATIVE); BILIRUBIN, URINE AUTO NEGATIVE (NEGATIVE); BLOOD, URINE BLOOD NEGATIVE (NEGATIVE); COLOR, URINE YELLOW (YELLOW); GLUCOSE, URINE (UA) AUTO NEGATIVE (NEGATIVE); KETONE, URINE AUTO NEGATIVE (NEGATIVE); LEUKOCYTE ESTERASE, URINE AUTO NEGATIVE (NEGATIVE); MUCUS, URINE SMALL (NEGATIVE); NITRITE, URINE AUTO NEGATIVE (NEGATIVE); PROTEIN, URINE AUTO 1+ mg/dL (NEGATIVE); RBC, URINE AUTO 1 /HPF (0-3); SPECIFIC GRAVITY URINE AUTO 1.021 (1.002-1.035); SQUAMOUS EPITHELIAL CELL UR AU 0 /HPF (0-6); UROBILINOGEN, URINE AUTO 0.2 mg/dL (0.0-2.0); WBC, URINE AUTO 1 /HPF (0-3)
[2018-09-29 10:56] LABS: ALBUMIN 3.4 GM/DL (3.2-5.2); CALCIUM LEVEL 9.5 MG/DL (8.5-10.1); CREATININE FOR GFR 1.98 MG/DL (0.70-1.30); GLOMERULAR FILTRATION RATE 38.8 (>60); PHOSPHORUS LEVEL 3.8 MG/DL (2.5-4.9); POTASSIUM SERUM 4.3 MEQ/L (3.5-5.1); URIC ACID 7.9 MG/DL (3.5-7.2)
== END ==
LOC: M SMT 08:10
PROVIDERS: ATTEND Internal Medicine Nephrology
DX: N18.5 Chronic kidney disease, stage 5 (principal); M1A.30X0 Chronic gout due to renal impairment, unspecified site, without tophus (tophi)

== ENCOUNTER → 2019-01-11 | Outpatient (REF) | payer BC, MEDICARE ==
[~2019-01-11] MED LIST changes: +SIMV10TA2 PO; -SIMV10TA21 PO
[2019-01-11 13:58] LABS: CHOLESTEROL LEVEL 243 MG/DL (<200); CHOLESTEROL RISK RATIO 5.785 (<5); HDL CHOLESTEROL 42 MG/DL (>40); NON-HDL-C 201 MG/DL; TRIGLYCERIDES LEVEL 460 MG/DL (<150)
== END ==
LOC: M LAB REF 13:08
PROVIDERS: ATTEND Internal Medicine Nephrology
DX: Z94.0 Kidney transplant status (principal); E78.2 Mixed hyperlipidemia; N18.3 Chronic kidney disease, stage 3 (moderate)

== ENCOUNTER → 2019-03-15 | Outpatient (CLI) | payer BC, MEDICARE ==
[~2019-03-15] MED LIST changes: -SIMV10TA2 PO; +SIMV10TA21 PO
[2019-03-15 10:58] LABS: AMORPHOUS SEDIMENT SMALL (NEGATIVE); APPEARANCE, URINE CLEAR (CLEAR); BACTERIA, URINE AUTO NEGATIVE (NEGATIVE); BILIRUBIN, URINE AUTO NEGATIVE (NEGATIVE); BLOOD, URINE BLOOD NEGATIVE (NEGATIVE); COLOR, URINE YELLOW (YELLOW); GLUCOSE, URINE (UA) AUTO NEGATIVE (NEGATIVE); KETONE, URINE AUTO NEGATIVE (NEGATIVE); LEUKOCYTE ESTERASE, URINE AUTO NEGATIVE (NEGATIVE); NITRITE, URINE AUTO NEGATIVE (NEGATIVE); PROTEIN, URINE AUTO NEGATIVE (NEGATIVE); RBC, URINE AUTO 3 /HPF (0-3); SPECIFIC GRAVITY URINE AUTO 1.012 (1.002-1.035); SQUAMOUS EPITHELIAL CELL UR AU 0 /HPF (0-6); UROBILINOGEN, URINE AUTO 0.2 mg/dL (0.0-2.0); WBC, URINE AUTO 0 /HPF (0-3)
[2019-03-15 11:01] LABS: BASO % 0.3 % (0.0-1.0); EOS # 0.1 10^3/uL (0.0-0.5); EOS % 1.7 % (0.0-3.0); HEMATOCRIT 49.7 % (42.0-52.0); HEMOGLOBIN 15.1 g/dl (13.5-17.5); LYMPH # 1.4 10^3/uL (1.5-5.0); LYMPH % 22.4 % (24.0-44.0); MEAN CORPUSCULAR HEMOGLOBIN 24.3 pg (27.0-33.0); MEAN CORPUSCULAR HGB CONC 30.4 g/dl (32.0-36.5); MEAN CORPUSCULAR VOLUME 79.9 fl (80.0-96.0); MONO # 0.7 10^3/uL (0.0-0.8); MONO % 10.2 % (0.0-5.0); NEUTROPHILS # 4.1 10^3/uL (1.5-8.5); NEUTROPHILS % 64.8 % (36.0-66.0); PLATELET COUNT, AUTOMATED 240 10^3/uL (150-450); RED BLOOD COUNT 6.22 10^6/uL (4.30-6.10); WHITE BLOOD COUNT 6.4 10^3/uL (4.0-10.0)
[2019-03-15 11:25] LABS: CREATININE,RANDOM URINE 83.2 MG/DL; TOTAL PROTEIN,RANDOM URINE 21.9 MG/DL (0.0-12.0)
[2019-03-15 11:29] LABS: ALBUMIN 3.7 GM/DL (3.2-5.2); BILIRUBIN,DIRECT 0.1 MG/DL (0.0-0.2); BILIRUBIN,TOTAL 0.3 MG/DL (0.2-1.0); CREATININE FOR GFR 1.74 MG/DL (0.70-1.30); MAGNESIUM LEVEL 1.7 MG/DL (1.8-2.4); PHOSPHORUS LEVEL 3.4 MG/DL (2.5-4.9); TOTAL PROTEIN 6.7 GM/DL (6.4-8.2)
== END ==
LOC: M PLALAB 08:12
PROVIDERS: ATTEND Internal Medicine Nephrology
DX: Z94.0 Kidney transplant status (principal); N18.5 Chronic kidney disease, stage 5; D84.9 Immunodeficiency, unspecified; Z79.899 Other long term (current) drug therapy

== ENCOUNTER → 2019-08-22 | Outpatient (REF) | payer BC ==
[2019-08-22 18:12] LABS: CHOLESTEROL LEVEL 269 MG/DL (<200); CHOLESTEROL RISK RATIO 8.151 (<5); HDL CHOLESTEROL 33 MG/DL (>40); NON-HDL-C 236 MG/DL; TRIGLYCERIDES LEVEL 553 MG/DL (<150)
== END ==
LOC: M LAB REF 16:40
PROVIDERS: ATTEND Internal Medicine Nephrology
DX: Z94.0 Kidney transplant status (principal); E78.2 Mixed hyperlipidemia

== ENCOUNTER 2019-09-16 10:55 | Emergency (ER) | payer BC ==
[~2019-09-16 10:55] MED LIST changes: -AMLO10TA5 PO; +AMLO1TAB25 PO
[2019-10-13 11:38] LABS: INR 0.98; PARTIAL THROMBOPLASTIN TIME 24.1 SECONDS (25.0-38.4); PROTHROMBIN TIME 13.2 SECONDS (11.8-14.0)
[2019-10-13 14:47] LABS: ERYTHROCYTE SEDIMENTATION RATE 12 mm/hr (0-15); HEMATOCRIT 48.2 % (42.0-52.0); HEMOGLOBIN 15.9 g/dl (13.5-17.5); MEAN CORPUSCULAR HEMOGLOBIN 26.4 pg (27.0-33.0); MEAN CORPUSCULAR VOLUME 80.1 fl (80.0-96.0); PLATELET COUNT, AUTOMATED 196 10^3/uL (150-450); RED BLOOD COUNT 6.02 10^6/uL (4.30-6.10); WHITE BLOOD COUNT 9.2 10^3/uL (4.0-10.0)
[2019-10-24 07:46] LABS: BLOOD UREA NITROGEN 35 MG/DL (7-18); CARBON DIOXIDE LEVEL 25 mmol/L (20-29); CHLORIDE LEVEL 101 MEQ/L (98-107); CREATININE FOR GFR 1.96 MG/DL (0.70-1.30); GLOMERULAR FILTRATION RATE 39.1 (>60); GLUCOSE, FASTING 238 MG/DL (70-100); POTASSIUM SERUM 3.6 MEQ/L (3.5-5.1); SODIUM LEVEL 137 MEQ/L (136-145)
[2019-10-24 07:47] LABS: ALBUMIN 3.2 GM/DL (3.2-5.2); ALT/SGPT 44 IU/L (0-32); BILIRUBIN,DIRECT 0.1 MG/DL (0.0-0.2); BILIRUBIN,TOTAL 0.5 MG/DL (0.2-1.0); CALCIUM LEVEL 8.8 MG/DL (8.5-10.1); CK-MB VALUE MASS < 1.0 NG/ML (<3.6); CPK CREATINE PHOSPHOKINASE 155 U/L (39-308); MB/CK RELATIVE INDEX 0.64 (< OR =4); NT-PRO BNP 64 PG/ML (<125); TOTAL PROTEIN 6.8 GM/DL (6.4-8.2)
[2019-10-24 07:48] LABS: C REACTIVE PROTEIN QUANTITATIV 5.95 MG/DL (0.00-0.30)
== END 2019-09-16 14:35 | disposition home or self-care (01) ==
LOC: M ED 10:55
DX: I82.402 Acute embolism and thrombosis of unspecified deep veins of left lower extremity (principal); I10 Essential (primary) hypertension; Z94.0 Kidney transplant status; Z79.899 Other long term (current) drug therapy

== ENCOUNTER → 2019-11-28 | Outpatient (REF) | payer BC, MEDICARE ==
[2019-11-28 18:58] LABS: TOTAL PROTEIN,RANDOM URINE 43.2 MG/DL (0.0-12.0)
== END ==
LOC: M LAB REF 17:16
PROVIDERS: ATTEND Internal Medicine Nephrology
DX: Z94.0 Kidney transplant status (principal); E78.2 Mixed hyperlipidemia

== ENCOUNTER → 2020-01-05 | Outpatient (CLI) | payer SELFPAY | LOC: M LABSMTC 12:24 | PROVIDERS: ATTEND Pediatrics | DX: Z20.828 Contact with and (suspected) exposure to other viral communicable diseases (principal) ==

== ENCOUNTER → 2020-02-01 | Outpatient (CLI) | payer BC, MEDICARE ==
[2020-02-01 11:18] LABS: BASO % 0.7 % (0.0-1.0); EOS # 0.1 10^3/uL (0.0-0.5); EOS % 2.1 % (0.0-3.0); HEMATOCRIT 37.6 % (42.0-52.0); HEMOGLOBIN 12.8 g/dl (13.5-17.5); LYMPH # 1.3 10^3/uL (1.5-5.0); LYMPH % 30.6 % (24.0-44.0); MEAN CORPUSCULAR HEMOGLOBIN 30.9 pg (27.0-33.0); MEAN CORPUSCULAR VOLUME 90.8 fl (80.0-96.0); MONO # 0.1 10^3/uL (0.0-0.8); MONO % 3.3 % (0.0-5.0); NEUTROPHILS # 2.6 10^3/uL (1.5-8.5); NEUTROPHILS % 62.6 % (36.0-66.0); PLATELET COUNT, AUTOMATED 148 10^3/uL (150-450); RED BLOOD COUNT 4.14 10^6/uL (4.30-6.10); WHITE BLOOD COUNT 4.2 10^3/uL (4.0-10.0)
[2020-02-01 11:19] LABS: APPEARANCE, URINE CLEAR (CLEAR); BACTERIA, URINE AUTO NEGATIVE (NEGATIVE); BILIRUBIN, URINE AUTO NEGATIVE (NEGATIVE); BLOOD, URINE BLOOD NEGATIVE (NEGATIVE); COLOR, URINE YELLOW (YELLOW); GLUCOSE, URINE (UA) AUTO NEGATIVE (NEGATIVE); KETONE, URINE AUTO NEGATIVE (NEGATIVE); LEUKOCYTE ESTERASE, URINE AUTO NEGATIVE (NEGATIVE); NITRITE, URINE AUTO NEGATIVE (NEGATIVE); PROTEIN, URINE AUTO 1+ mg/dL (NEGATIVE); RBC, URINE AUTO 0 /HPF (0-3); SPECIFIC GRAVITY URINE AUTO 1.013 (1.002-1.035); SQUAMOUS EPITHELIAL CELL UR AU 0 /HPF (0-6); UROBILINOGEN, URINE AUTO 0.2 mg/dL (0.0-2.0); WBC, URINE AUTO 0 /HPF (0-3)
[2020-02-01 11:56] LABS: ALBUMIN 3.9 GM/DL (3.2-5.2); CALCIUM LEVEL 9.5 MG/DL (8.5-10.1); CREATININE FOR GFR 1.65 MG/DL (0.70-1.30); GLOMERULAR FILTRATION RATE 47.6 (>60); MAGNESIUM LEVEL 1.8 MG/DL (1.8-2.4); PHOSPHORUS LEVEL 3.2 MG/DL (2.5-4.9); POTASSIUM SERUM 3.9 MEQ/L (3.5-5.1)
== END ==
LOC: M PLALAB 08:37
PROVIDERS: ATTEND Internal Medicine Nephrology
DX: Z94.0 Kidney transplant status (principal); N18.5 Chronic kidney disease, stage 5; D84.9 Immunodeficiency, unspecified

== ENCOUNTER → 2020-02-28 | Outpatient (REF) | payer MEDICARE, BC | LOC: M LAB REF 17:13 | PROVIDERS: ATTEND Internal Medicine Nephrology | DX: Z94.0 Kidney transplant status (principal) ==

== ENCOUNTER → 2020-05-17 | Outpatient (CLI) | payer BC, MEDICARE ==
[2020-05-17 11:18] LABS: APPEARANCE, URINE CLEAR (CLEAR); BACTERIA, URINE AUTO NEGATIVE (NEGATIVE); BASO % 0.5 % (0.0-1.0); BILIRUBIN, URINE AUTO NEGATIVE (NEGATIVE); BLOOD, URINE BLOOD NEGATIVE (NEGATIVE); COLOR, URINE YELLOW (YELLOW); EOS # 0.1 10^3/uL (0.0-0.5); EOS % 1.1 % (0.0-3.0); GLUCOSE, URINE (UA) AUTO NEGATIVE (NEGATIVE); HEMATOCRIT 49.1 % (42.0-52.0); HEMOGLOBIN 16.4 g/dl (13.5-17.5); KETONE, URINE AUTO NEGATIVE (NEGATIVE); LEUKOCYTE ESTERASE, URINE AUTO NEGATIVE (NEGATIVE); LYMPH # 1.9 10^3/uL (1.5-5.0); MEAN CORPUSCULAR HEMOGLOBIN 30.6 pg (27.0-33.0); MEAN CORPUSCULAR HGB CONC 33.4 g/dl (32.0-36.5); MEAN CORPUSCULAR VOLUME 91.6 fl (80.0-96.0); MONO # 0.8 10^3/uL (0.0-0.8); MONO % 8.6 % (2.0-8.0); NEUTROPHILS # 5.9 10^3/uL (1.5-8.5); NEUTROPHILS % 67.3 % (36.0-66.0); NITRITE, URINE AUTO NEGATIVE (NEGATIVE); PLATELET COUNT, AUTOMATED 211 10^3/uL (150-450); PROTEIN, URINE AUTO 1+ mg/dL (NEGATIVE); RBC, URINE AUTO 1 /HPF (0-3); RED BLOOD COUNT 5.36 10^6/uL (4.30-6.10); SPECIFIC GRAVITY URINE AUTO 1.016 (1.002-1.035); SQUAMOUS EPITHELIAL CELL UR AU 0 /HPF (0-6); UROBILINOGEN, URINE AUTO 0.2 mg/dL (0.0-2.0); WBC, URINE AUTO 0 /HPF (0-3); WHITE BLOOD COUNT 8.8 10^3/uL (4.0-10.0)
[2020-05-17 11:37] LABS: ALBUMIN 3.9 GM/DL (3.2-5.2); CALCIUM LEVEL 9.1 MG/DL (8.5-10.1); CREATININE FOR GFR 1.49 MG/DL (0.70-1.30); GLOMERULAR FILTRATION RATE 53.4 (>60); MAGNESIUM LEVEL 2.1 MG/DL (1.8-2.4); PHOSPHORUS LEVEL 3.1 MG/DL (2.5-4.9); POTASSIUM SERUM 4.1 MEQ/L (3.5-5.1); TOTAL PROTEIN,RANDOM URINE 31.4 MG/DL (0.0-12.0)
== END ==
LOC: M PLALAB 09:34
PROVIDERS: ATTEND Internal Medicine Nephrology
DX: N18.5 Chronic kidney disease, stage 5 (principal); Z94.0 Kidney transplant status; D84.9 Immunodeficiency, unspecified; Z79.899 Other long term (current) drug therapy

== ENCOUNTER → 2020-06-04 | Outpatient (CLI) | payer BC, MEDICARE | LOC: M PLALAB 08:32 | PROVIDERS: ATTEND Internal Medicine Nephrology | DX: Z53.20 Procedure and treatment not carried out because of patient's decision for unspecified reasons (principal) ==

== ENCOUNTER → 2020-06-05 | Outpatient (REF) | payer BC, MEDICARE | LOC: M LAB REF 17:23 | PROVIDERS: ATTEND Internal Medicine Nephrology | DX: Z94.0 Kidney transplant status (principal) ==

== ENCOUNTER → 2020-09-06 | Outpatient (REF) | payer MEDICARE, BC ==
[~2020-09-06] MED LIST changes: +OMEP40CA4 PO; -OMEP40CA97 PO
== END ==
LOC: M LAB REF 17:06
PROVIDERS: ATTEND Internal Medicine Nephrology
DX: Z94.0 Kidney transplant status (principal)